=== PATIENT | female | born 1950 | race Caucasian/White ===

== ENCOUNTER 2019-03-18 16:38 | Outpatient (RCR) | payer MEDICARE, MEDICAID, SELFPAY | END 2019-03-31 00:01 | LOC: SPT 16:38 | PROVIDERS: Family Provider Family Medicine; Visit Provider Family Medicine | DX: M25.569 Pain in unspecified knee (principal); M19.90 Unspecified osteoarthritis, unspecified site; M25.519 Pain in unspecified shoulder | CPT/HCPCS: 97162 ==

== ENCOUNTER 2019-04-01 06:00 | Outpatient (RCR) | payer MEDICARE, MEDICAID, SELFPAY | END 2019-05-01 23:59 | disposition home or self-care (01) | LOC: SPT 06:00 | PROVIDERS: Family Provider Family Medicine; Visit Provider Internal Medicine | DX: M19.90 Unspecified osteoarthritis, unspecified site (principal); M25.519 Pain in unspecified shoulder; M25.569 Pain in unspecified knee | CPT/HCPCS: 97110 ==

== ENCOUNTER 2019-05-02 06:00 | Outpatient (RCR) | payer MEDICARE, MEDICAID, SELFPAY | END 2019-05-30 23:59 | disposition home or self-care (01) | LOC: SPT 06:00 | PROVIDERS: Family Provider Family Medicine; Visit Provider Internal Medicine | DX: M25.512 Pain in left shoulder (principal); G80.9 Cerebral palsy, unspecified | CPT/HCPCS: 97110; 97530 ==

== ENCOUNTER 2019-06-02 | Outpatient (RCR) | payer MEDICARE, MEDICAID, SELFPAY | END 2019-06-20 | disposition home or self-care (01) | LOC: SPT | PROVIDERS: Family Provider Family Medicine; Visit Provider Internal Medicine | DX: M19.90 Unspecified osteoarthritis, unspecified site (principal); M25.511 Pain in right shoulder; M25.562 Pain in left knee; M25.561 Pain in right knee | CPT/HCPCS: 97110; 97530 ==

== ENCOUNTER 2019-10-09 11:17 | Outpatient (CLI) | payer MEDICARE, MEDICAID, SELFPAY ==
--- NOTE | 2019-10-09 11:25 | XRR_ITS ---
PROCEDURE INFORMATION: Exam: XR Lumbosacral Spine, 2 or 3 Views Exam date and time: 10/09/2019 11:48 AM Age: 69 years old Clinical indication: Low back pain TECHNIQUE: Imaging protocol: XR of the lumbosacral spine, 2 or 3 views. COMPARISON: CR Lumbar Spine 2-3 views* [id number] 11/22/2015 7:15 AM FINDINGS: Vertebrae: Osteopenia, degenerative change, and mild scoliosis. Gastrointestinal tract: Prominent stool. Soft tissues: Unremarkable. XR/XR lumbar spine 2-3V* [id number] IMPRESSION: Osteopenia, degenerative change, and mild scoliosis.
== END 2019-10-09 11:18 | disposition home or self-care (01) ==
LOC: RAD 11:23
PROVIDERS: Family Provider Family Medicine; Visit Provider Family Medicine
DX: M54.5 Low back pain (principal); M85.88 Other specified disorders of bone density and structure, other site; M41.86 Other forms of scoliosis, lumbar region
CPT/HCPCS: 72100

== ENCOUNTER 2019-11-11 11:58 | Outpatient (CLI) | payer MEDICARE, MEDICAID, SELFPAY ==
--- NOTE | 2019-11-11 12:03 | MM_ITS ---
WS: [id number] BILATERAL DIGITAL SCREENING MAMMOGRAPHY WITH CAD CLINICAL INFORMATION: SCREENING HISTORY: Screening mammogram. No current complaints. COMPARISON: TECHNIQUE: Bilateral CC and MLO views. FINDINGS: The breasts are composed of heterogeneous fibroglandular density tissue, which can limit the detectio n of small underlying mass lesions. No suspicious mass, asymmetry, calcifications, or architectural d istortion. No evidence of malignancy. Dystrophic calcifications right breast. MM/[place] [id number] IMPRESSION: BI-RADS: 2-Benign FOLLOW UP: 1 Year Follow-up Recommend return to annual screening mammography.
== END 2019-11-11 11:59 | disposition home or self-care (01) ==
LOC: RADSHAW 12:02
PROVIDERS: PCP Family Medicine; Visit Provider Family Medicine
DX: Z12.31 Encounter for screening mammogram for malignant neoplasm of breast (principal)
CPT/HCPCS: 77067

== ENCOUNTER 2020-02-23 10:14 | Outpatient (CLI) | payer MEDICARE, MEDICAID, SELFPAY ==
--- NOTE | 2020-02-23 10:34 | CT_ITS ---
WS: [id number] CT HEAD TECHNIQUE: Noncontrast CT of the head obtained from the skullbase to the vertex. CLINICAL INFORMATION: UNSPECIFIED DEMENTIA WITHOUT BEHAVIORAL DISTURBANCE COMPARISON: November 22, 2015 DLP: 992.[address] scans at [facility] use at least one of these dose optimization techniques: automat ed exposure control; mA and/or kV adjustment per patient size (includes targeted exams where dose is matched to clinical indication); or iterative reconstruction. FINDINGS: No evidence of intracranial hemorrhage or mass effect. Ventricular system and basal cisterns are montaño nt. Mild small vessel changes with moderate parenchymal volume loss. No extra-axial fluid collections . No evidence of mass or mass effect. Normal martínez-white differentiation. Paranasal sinuses and mastoid air cells are well aerated. .Normal visualized soft tissues. CT/CT head wo con* [id number] IMPRESSION: 1. No evidence of intracranial hemorrhage or mass effect. 2. Mild small vessel changes. Moderate parenchymal volume loss. 3. No acute intracranial findings.
== END 2020-02-23 10:15 | disposition home or self-care (01) ==
PROVIDERS: PCP Family Medicine; Visit Provider Family Medicine
DX: F03.90 Unspecified dementia, unspecified severity, without behavioral disturbance, psychotic disturbance, mood disturbance, and anxiety (principal)
CPT/HCPCS: 70450

== ENCOUNTER → 2020-06-16 12:52 | Outpatient (BNVA) | payer MEDICARE, MEDICAID, SELFPAY | PROVIDERS: PCP Family Medicine; Visit Provider Surgery | DX: Z01.812 Encounter for preprocedural laboratory examination (principal); Z11.52 Encounter for screening for COVID-19 | CPT/HCPCS: 87635 ==

== ENCOUNTER 2020-06-21 07:36 | Day surgery (SDC) | payer MEDICARE, MEDICAID, SELFPAY ==
[2020-06-20 12:25] VITALS: BMI 20.5
[2020-06-21 08:07] VITALS: BP 160/79; PULSE 91; RESP 18; TEMP 36.9; O2SAT 99
[2020-06-21] MEDS: sodium chloride 0.9% 1,000 ML 30 ML IV (08:10)
--- NOTE | 2020-06-21 08:12 | ANES.PREANE2 ---
Pre-Anesthetic Assessment Pre-Anesthetic Assessment: Height/Weight: Height 1.63 m Weight 54.431 kg Temp Pulse Resp BP Pulse Ox 98.5 F 91 18 160/79 99 06/21/20 08:07 06/21/20 08:07 06/21/20 08:07 06/21/20 08:07 06/21/20 08:07 Preop Diagnosis: diagnostic Proposed Procedure: Operation Date: 06/21/20 08:30 Proposed Procedures p Colonoscopy 89090 K92.1(Not Applicable) - Michele Foster MD Last intake: Intake Last Liquid Date 06/20/20 Last Solid Date 06/19/20 Social: Social History: No alcohol and No tobacco Exam: Pre-Anes Outpt Exam: alert and oriented x 3 Airway: MP: 2 Dentition: Partials Pulmonary: Pulmonary: Sleep apnea Comments: prescribed cpap not in use CV/HEM: CV/HEM: HTN : : None reported Hepatic: Hepatic: None reported GI: GI: GERD Comments: occasional heartburn Metabolic: Metabolic: None reported Musc/skel: Comments: cerebral palsy non ambulatory Neuropsych: Neuropsych: Anxiety and Depression Anesthetic Plan: ASA status: 3 Anesthesia: Anesthesia Evaluation and MAC Risk of > 500 ml blood loss (7ml/kg in children): No PFSH Anesthesia PFSH: Medical History (Updated 06/03/20 @ 17:38 by Michele Foster MD) Anemia Cerebral palsy Dementia Depression Hyperparathyroidism Hypertension Osteoarthritis Surgical History (Updated 06/03/20 @ 11:13 by Michele Foster MD) History of colonoscopy (~2012) History of hysterectomy Social History (Updated 06/03/20 @ 11:07 by Michaela Jain) Smoking and tobacco status: never smoked Alcohol intake: never History of recent travel: No Data Anesthesia Cardiac Studies: No Data to Display
--- NOTE | 2020-06-21 08:45 | W.PM.OPSUD ---
Surgery/Procedure H&P Update DATE OF PROCEDURE: June 21, 2020 DATE H&P PERFORMED: 06/03/20 H&P UPDATE INFORMATION: I have reviewed H&P completed within last 30 days, I have examined patient prior to procedure and No changes to prior documentation PREOP DIAGNOSIS: diagnostic PLANNED PROCEDURE: Operation Date: 06/21/20 08:30 Proposed Procedures p Colonoscopy 67366 K92.1(Not Applicable) - Michele Foster MD
[2020-06-21 09:16] VITALS: BP 108/66; PULSE 78; RESP 18; TEMP 36.1; O2SAT 92
[2020-06-21 09:21] VITALS: BP 127/71; PULSE 77; RESP 20; O2SAT 97
--- NOTE | 2020-06-21 12:04 | ANE.PACU2 ---
Inpatient post-anesthesia follow up: Airway intact: Yes Vital signs: Temperature 97.0 F Pulse Rate 77 Respiratory Rate 20 Blood Pressure 127/71 Pulse Oximetry 97 Oxygen Delivery Me thod Nasal Cannula Oxygen Flow Rate 2 Fraction of Inspir ed Oxygen Hydration adequate: Yes Nausea and vomiting: No Pain level: 2 Mental status: Baseline
== END 2020-06-21 09:50 | disposition home or self-care (01) ==
PROVIDERS: PCP Family Medicine; Visit Provider Surgery
PROC: 0DJD8ZZ Inspection of Lower Intestinal Tract, Via Natural or Artificial Opening Endoscopic (ICD-10-PCS; CPT 45378; principal; 2020-06-21 08:30)
DX: K92.1 Melena (principal); K57.30 Diverticulosis of large intestine without perforation or abscess without bleeding; K64.8 Other hemorrhoids; F32.9 Major depressive disorder, single episode, unspecified; I10 Essential (primary) hypertension; M19.90 Unspecified osteoarthritis, unspecified site; K21.9 Gastro-esophageal reflux disease without esophagitis
CPT/HCPCS: 45378; 96360; J2704; J7030

== ENCOUNTER 2021-10-20 12:04 | Outpatient (CLI) | payer MEDICARE, MEDICAID, SELFPAY ==
--- NOTE | 2021-10-20 | XR_ITS ---
WS: [id number] XR chest 2V* [id number] REASON FOR EXAM: COUGH, UNSPECIFIED FINDINGS: Mild tortuosity the thoracic aorta. Normal heart size. Gas-filled hiatal hernia. Calcified granulomatous disease in both hemithoraces. No lung nodule or lung mass. No acute pulmonary parenchymal or pleural disease. Blunting of the costophrenic angle which appears to be due to pleural scarring based on previous exam inations. Rotatory scoliosis convex right with degenerative spondylosis in the mid and lower thoracic spine. XR/XR chest 2V* [id number] IMPRESSION: No acute chest abnormality.
== END 2021-10-20 12:05 | disposition home or self-care (01) ==
LOC: RAD 12:09
PROVIDERS: PCP Family Medicine; Visit Provider Family Medicine
DX: R05.9 Cough, unspecified (principal)
CPT/HCPCS: 71046

== ENCOUNTER 2021-11-14 06:00 | Outpatient (RCR) | payer MEDICARE, MEDICAID, SELFPAY | END 2021-11-29 23:59 | disposition home or self-care (01) | LOC: SPT 06:00 | PROVIDERS: PCP Family Medicine; Referring Provider Family Medicine; Visit Provider Family Medicine | DX: M25.569 Pain in unspecified knee (principal); M19.90 Unspecified osteoarthritis, unspecified site; M25.519 Pain in unspecified shoulder | CPT/HCPCS: 97110; 97162; 97530 ==

== ENCOUNTER 2021-11-17 08:40 | Outpatient (CLI) | payer MEDICARE, MEDICAID, SELFPAY ==
--- NOTE | 2021-11-17 08:48 | MM_ITS ---
WS: [id number] Bilateral screening digital mammogram, 11/17/2021 Clinical Data: SCREENING Comparison: 11/11/2019, 09/24/2018, 09/04/2017, 06/15/2014, 03/28/2012, 03/12/2012. Findings: The breast parenchymal pattern shows fibroglandular tissue. No spiculated masses or clustered calcifi cations are seen. There are no secondary signs of carcinoma. There are benign calcifications in the u pper outer quadrant of the right breast. There are mole markers on both breasts. MM/[place] [id number] Impression: 1. Negative bilateral mammogram unchanged. 2. Recommend annual screening mammograms. BIRADS: 1-Negative FOLLOW UP: 1 Year Follow-up The CAD truckload checker was used.
== END 2021-11-17 08:41 | disposition home or self-care (01) ==
LOC: RAD 08:42
PROVIDERS: PCP Family Medicine; Visit Provider Family Medicine
DX: Z12.31 Encounter for screening mammogram for malignant neoplasm of breast (principal)
CPT/HCPCS: 77063; 77067

== ENCOUNTER 2021-11-30 06:00 | Outpatient (RCR) | payer MEDICARE, MEDICAID, SELFPAY | END 2021-12-29 23:59 | disposition home or self-care (01) | LOC: SPT 06:00 | PROVIDERS: PCP Family Medicine; Visit Provider Family Medicine | DX: M25.569 Pain in unspecified knee (principal); M19.90 Unspecified osteoarthritis, unspecified site; M25.519 Pain in unspecified shoulder | CPT/HCPCS: 97110; 97530 ==

== ENCOUNTER 2021-12-30 06:00 | Outpatient (RCR) | payer MEDICARE, MEDICAID, SELFPAY | END 2022-01-08 23:55 | disposition home or self-care (01) | LOC: SPT 06:00 | PROVIDERS: PCP Family Medicine; Visit Provider Family Medicine | DX: M19.90 Unspecified osteoarthritis, unspecified site (principal); M25.519 Pain in unspecified shoulder; M25.569 Pain in unspecified knee | CPT/HCPCS: 97110; 97530 ==

== ENCOUNTER 2022-01-16 06:00 | Outpatient (RCR) | payer MEDICARE, MEDICAID, SELFPAY | END 2022-01-29 23:59 | disposition home or self-care (01) | LOC: SOT 06:00 | PROVIDERS: PCP Family Medicine; Visit Provider Family Medicine | DX: G80.1 Spastic diplegic cerebral palsy (principal) | CPT/HCPCS: 97167; 97530 ==

== ENCOUNTER 2022-01-31 06:00 | Outpatient (RCR) | payer MEDICARE, MEDICAID, SELFPAY | END 2022-02-28 23:59 | disposition home or self-care (01) | LOC: SST 06:00 | PROVIDERS: PCP Family Medicine; Visit Provider Family Medicine | DX: G80.9 Cerebral palsy, unspecified (principal); R13.10 Dysphagia, unspecified | CPT/HCPCS: 92526; 92610 ==

== ENCOUNTER 2022-04-13 13:49 | Outpatient (CLI) | payer MEDICARE, MEDICAID, SELFPAY ==
--- NOTE | 2022-04-13 14:05 | XR_ITS ---
WS: [id number] DEXA (DUAL ENERGY X-RAY ABSORPTIOMETRY) Bone mineral density was performed using a [employer] machine. HISTORY: POSTMENOPAUSAL COMPARISON: None available. Lumbar spine BMD (L1-L4): 0.660 g/cm2 T score: -4.3 Z score: -1.9 Total hip BMD: Left: 0.208 g/cm2. T score: -6.4 Z score: -4.3 Right: 0.272 g/cm2. T score: -5.8 Z score: -3.7 10 year probability of a major osteoporotic fracture is 74.8%. XR/XR DEXA axial skeleton* [id number] IMPRESSION: OSTEOPOROSIS based upon the WHO classification for females.
== END 2022-04-13 13:50 | disposition home or self-care (01) ==
PROVIDERS: PCP Family Medicine; Visit Provider Family Medicine
DX: Z78.0 Asymptomatic menopausal state (principal)
CPT/HCPCS: 77080

== ENCOUNTER 2022-04-19 21:22 | Emergency (ER) | payer MEDICARE, MEDICAID, SELFPAY ==
[2022-04-19 21:25] VITALS: BP 184/80; PULSE 65; RESP 18; TEMP 36.8; O2SAT 97; BMI 16.5
--- NOTE | 2022-04-19 21:25 | ED_ITS ---
HPI - General Adult General: Chief complaint: General Medical Stated complaint: HIGH BLOOD PRESSURE Time Seen by Provider: 04/19/22 21:25 Limitations: altered mental status History of Present Illness: Ms Horne is a 71-year-old lady with (per chart review) history of hypertension, dementia, chronic constipation presenting to the emergency department due to concern of high blood pressure, laboratory abnormalities, and eye redness. She has been following with primary care and a bone density scan was ordered, routine labs were ordered due to low bone density and calcium was elevated. Additionally are typically well controlled blood pressure has been higher today. It is unclear if there are any associated symptoms. She also has had eye redness, does have a history of cataract surgery at the end of last year. Unclear if there are any other associated eye symptoms with this. History is limited by patient's mental status. Staff at bedside upon their arrival reports perhaps some mildly worse mental status. Onset (ago): hour(s) Review of Systems General: Reports: ROS unobtainable due to mental status PFSH ED PFSH: Medical History Anemia Cerebral palsy Dementia Depression Hyperparathyroidism Hypertension Osteoarthritis Surgical History History of colonoscopy (06/21/20) Diverticulosis Internal hemorrhoids History of hysterectomy Social History Smoking and tobacco status: never smoked Alcohol intake: never History of recent travel: No Physical Exam Const: COMMON NORMALS: alert GENERAL APPEARANCE: cooperative and well developed HENMT: COMMON NORMALS: normocephalic and atraumatic HEAD & SCALP: normocephalic and atraumatic THROAT: posterior oropharynx normal Eye: SCLERA: sclerae normal OTHER: Right eye conjunctival injection with mild chemosis. There is minimal haziness of the cornea on the right. Intraocular pressure 7 bilaterally. Normal extraocular movements without evidence of entrapment. No evidence of orbital or preseptal cellulitis. Fluorescein without evidence of abrasion Neck/C-Spine: COMMON NORMALS: supple GENERAL: Yes trachea midline Resp: COMMON NORMALS: normal respiratory effort EFFORT & INSPECTION: Yes able to speak in complete sentences Cardio: COMMON NORMALS: regular rate and regular rhythm RATE: regular rate RHYTHM: regular rhythm GI: COMMON NORMALS: Soft to palpation PALPATION: Yes Soft to palpation and No Tenderness to palpation present (GI) Extremity: GENERAL: Yes normal exam except as noted and No edema Neuro: COMMON NORMALS: moves all extremities SENSORIUM/ORIENTATION: Yes alert and Yes Orientation impaired Psych: COMMON NORMALS: mental status grossly normal and Normal thought process present THOUGHT PROCESS: Normal thought process present Course Vital Signs: Vital signs: Vital Signs Temperature 98.2 F 04/19/22 21:25 Pulse Rate 66 04/19/22 22:45 Respiratory Rate 14 04/19/22 22:45 Blood Pressure 145/77 04/19/22 22:45 Pulse Oximetry 96 04/19/22 22:45 [facility] - General Adult Medical Decision Making 71-year-old lady with history of eye surgery presenting to the emergency department for eye complaint and questionable abnormal labs. History is limited by patient's mental status however no focal neurologic deficits are appreciated. Patient is nontoxic and exam as above. Ocular exam performed as noted above. Labs with minimal leukocytosis without significant other hematologic abnormality, similar to prior. Metabolic panel also similar to prior without significant derangement, calcium is only minimally elevated and not significantly such to create mental status change. Patient treated with fluids and temporary eyedrops as we do not carry the recommended eyedrops on formulary as recommended in discussion with ophthalmology. Patient to have close ophthalmology follow-up Most likely etiology of patient's symptoms is hypertension and conjunctivitis. Pretension improved without treatment. The results of ED evaluation were discussed with the staff including prescriptions and/or symptomatic cares (if applicable) including appropriate and responsible use, followup plan, and return precautions. The staff verbalized understanding and felt safe for discharge. Medical Records I reviewed the patient's medical records. Lab Data I reviewed the patient's lab results. 04/19/22 21:40 04/19/22 21:40 Radiology Impressions Chest X-Ray 04/19/22 21:41 IMPRESSION: 1. Left hemidiaphragm is obscured possibly secondary to combined small left pleural effusion and superimposed atelectasis versus infiltrates and pneumonia. 2. Hiatal hernia again seen. Laboratory Results WBC 11.0 10^3/uL (4.0-10.0) H 04/19/22 21:40 RBC 4.27 10^6/uL (4.1-5.3) 04/19/22 21:40 Hgb 13.2 g/dL (11.5-15.3) 04/19/22 21:40 Hct 42.0 % (37.0-47.0) 04/19/22 21:40 MCV 98.4 fl (81-99) 04/19/22 21:40 MCH 30.9 pg (28.0-34.0) 04/19/22 21:40 MCHC 31.4 g/dL (30.0-36.0) 04/19/22 21:40 RDW 14.0 % (12.1-15.1) 04/19/22 21:40 Plt Count 305 10^3/cmm (130-400) 04/19/22 21:40 MPV 9.5 fL (7.4-10.4) 04/19/22 21:40 Neut % (Auto) 63.4 % 04/19/22 21:40 Lymph % (Auto) 25.7 % 04/19/22 21:40 [place] % (Auto) 7.4 % 04/19/22 21:40 Eos % (Auto) 2.8 % 04/19/22 21:40 Baso % (Auto) 0.4 % 04/19/22 21:40 Neut # (Auto) 7.00 10^3/uL (1.8-7.7) 04/19/22 21:40 Lymph # (Auto) 2.8 10^3/uL (0.8-4.8) 04/19/22 21:40 [place]ee # (Auto) 0.8 10^3/uL (0.2-0.9) 04/19/22 21:40 Eos # (Auto) 0.3 10^3/uL (0.0-0.8) 04/19/22 21:40 Baso # (Auto) 0.0 10^3/uL (0.0-0.1) 04/19/22 21:40 Nucleated RBC % (auto) 0 % 04/19/22:40 Nucleated RBCs # 0.0 /100WBC 04/19/22 21:40 Sodium 139 mmol/L (136-145) 04/19/22 21:40 Potassium 4.3 mmol/L (3.5-5.1) 04/19/22 21:40 Chloride 103 mmol/L (98-107) 04/19/22 21:40 Carbon Dioxide 26 mmol/L (22-29) 04/19/22 21:40 Anion Gap 14.3 (5-19) 04/19/22 21:40 BUN 8 mg/dL (8-23) 04/19/22 21:40 Creatinine 0.5 mg/dL (0.5-0.9) 04/19/22 21:40 GFR Calculation Not Reportable 04/19/22 21:40 Glucose 101 mg/dL (65-115) 04/19/22 21:40 Calculated Osmolality 286 mOsm/kg (285-295) 04/19/22 21:40 Calcium 10.6 mg/dL (8.5-10.5) H 04/19/22 21:40 Total Bilirubin 0.2 mg/dL (0.15-1.2) 04/19/22 21:40 AST 20 U/L (0-32) 04/19/22 21:40 ALT 11 U/L (0-33) 04/19/22 21:40 Alkaline Phosphatase 87 U/L (35-105) 04/19/22 21:40 Total Protein 7.4 g/dL (6.6-8.7) 04/19/22 21:40 Albumin 4.1 g/dL (3.5-5.2) 04/19/22 21:40 Globulin 3.3 g/dL (1.3-4.6) 04/19/22 21:40 TSH 4.66 uIU/mL (0.27-4.20) H 04/19/22 21:40 Free T4 1.02 ng/dL (0.82-1.77) 04/19/22 22:34 Discharge Plan Discharge Patient Disposition: Home Clinical Impression: HTN (hypertension), Conjunctivitis Condition: Stable Prescriptions: New moxifloxacin 0.5 % drops See Rx Instructions .ROUTE .COMPLEX Qty: 3 0RF Rx Instructions: 2 drops every 2 hours for 2 days THEN q6hrs for 5 days No Action acetaminophen [Tylenol] 325 mg tablet 650 mg PO QID PRN (Reason: Pain) donepezil [Aricept] 10 mg tablet 10 mg PO DAILY baclofen 5 mg tablet 5 mg PO TID PRN (Reason: Spasms) ferrous sulfate 325 mg (65 mg iron) tablet 325 mg PO DAILY loperamide [Imodium A-D] 2 mg capsule 2 mg PO Q6H PRN (Reason: Abdominal Discomfort) metoprolol succinate 25 mg tablet extended release 24 hr 25 mg PO DAILY polyethylene glycol 3350 [Miralax] 17 gram powder in packet 17 g PO DAILY DHA 200 mg capsule 200 mg PO DAILY fluticasone propionate [Children's Flonase Allergy Rlf] 50 mcg/actuation spray,suspension 1 spray intranasal BID PRN (Reason: allergy symptoms) Qty: 16 0RF Rx Instructions: administer into each nostril Discharge Orders: Discharge ED (Routine); Ordered 04/19/22 Ordered By: Shreyas Holley Referrals: Em Davis MD [Staff Physician] - Patient Instructions: Hypertension (ED), Conjunctivitis (ED) Activity Restrictions/Additional Instructions: Thank you for visiting the emergency department. You were seen and evaluated for high blood pressure and eye concern. As discussed the most likely cause of the eye redness is infection. I will prescribe antibiotics. You may use the ofloxacin drops 2 drops in the right eye every 6 hours until you can fill the moxifloxacin drops and then switch to the moxifloxacin drops as as directed. Please also follow-up with [facility] in the morning. I recommend primary care follow-up for evaluation of blood pressure. You may continue your other medications. Return to the emergency department for uncontrolled symptoms or anything else that you are concerned about a feel needs emergency department evaluation. Coding Level of Care Code ED [employer] Missileman for Nika Marsh
--- NOTE | 2022-04-19 21:41 | XRR_ITS ---
PROCEDURE INFORMATION: Exam: XR Chest Exam date and time: 04/19/2022 9:47 PM Age: 71 years old Clinical indication: Patient HX: Brought via EMS for hypertension. Denies any other complaints. ; Additional info: Hypertension, AMS TECHNIQUE: Imaging protocol: Radiologic exam of the chest. Views: 1 view. COMPARISON: CR XR chest 2V* [id number] 04/17/2022 12:06 PM FINDINGS: Lungs: See Pleural spaces finding. Pleural spaces: The left hemidiaphragm is obscured likely secondary to possible combined left pleural effusion and left basilar atelectasis versus infiltrates and pneumonia. Heart/Mediastinum: A gas-filled hiatal hernia is again seen. Bones/joints: S-shaped curvature of the axial skeleton again seen. XR/XR chest 1V portable [id number] IMPRESSION: 1. Left hemidiaphragm is obscured possibly secondary to combined small left pleural effusion and superimposed atelectasis versus infiltrates and pneumonia. 2. Hiatal hernia again seen.
[2022-04-19 21:46] LABS: Basophils % 0.4 %; Eosinophils # 0.3 10^3/uL (0.0-0.8); Eosinophils % 2.8 %; Hemoglobin 13.2 g/dL (11.5-15.3); Lymphocytes # 2.8 10^3/uL (0.8-4.8); Lymphocytes % 25.7 %; Mean Corpuscular HGB Conc 31.4 g/dL (30.0-36.0); Mean Corpuscular Hemoglobin 30.9 pg (28.0-34.0); Mean Corpuscular Volume 98.4 fl (81-99); Mean Platelet Volume 9.5 fL (7.4-10.4); Monocytes # 0.8 10^3/uL (0.2-0.9); Monocytes % 7.4 %; Neutrophils % 63.4 %; Nucleated Red Blood Cells % 0 %; Platelet Count 305 10^3/cmm (130-400); Red Blood Count 4.27 10^6/uL (4.1-5.3)
--- NOTE | 2022-04-19 21:54 | ECG_ITS ---
[facility] Test Date: 2022-04-19 Pat Name: Melany Horne Department: Room: Gender: Female Registered Pharmacy Technician: : [id number] Requested By: Shreyas Holley Order Number: [id number] Cande MD: Sammy Casper M.D. Measurements Intervals [place] Rate: 58 P: 29 AL: 139 QRS: 40 QRSD: 94 T: 40 QT: 434 QTc: 428 Interpretive Statements SINUS BRADYCARDIA POSSIBLE RIGHT VENTRICULAR CONDUCTION DELAY [RSR (QR) IN V1/V2] Compared to ECG 04/07/2018 14:09:38 Sinus rhythm no longer present T-wave abnormality no longer present Electronically Signed On 04-20-2022 14:43:09 EYE DROPPER ASSEMBLER by Sammy Casper M.D. [id number]
[2022-04-19 22:15] VITALS: BP 151/84; PULSE 63; RESP 14; O2SAT 95
[2022-04-19 22:15] LABS: Alanine Aminotransferase 11 U/L (0-33); Albumin Level 4.1 g/dL (3.5-5.2); Alkaline Phosphatase 87 U/L (35-105); Aspartate Amino Transferase 20 U/L (0-32); Blood Urea Nitrogen 8 mg/dL (8-23); Calcium 10.6 mg/dL (8.5-10.5); Carbon Dioxide 26 mmol/L (22-29); Chloride 103 mmol/L (98-107); Creatinine Clr Calc Pharmacy 43.6962; Globulin 3.3 g/dL (1.3-4.6); Glucose 101 mg/dL (65-115); Osmolality Calculated 286 mOsm/kg (285-295); Sodium 139 mmol/L (136-145); Thyroid Stimulating Hormone 4.66 uIU/mL (0.27-4.20); Total Bilirubin 0.2 mg/dL (0.15-1.2); Total Protein 7.4 g/dL (6.6-8.7)
[2022-04-19 22:16] LABS: Anion Gap 14.3 (5-19); Potassium 4.3 mmol/L (3.5-5.1)
[2022-04-19] MEDS: tetracaine 0.5% Op Soln 4 mL Btl 1 DROP EYE-RIGHT (22:29)
[2022-04-19] MEDS: fluorescein 1 mg Strip EYE-RIGHT (22:29)
[2022-04-19] MEDS: sodium chloride 0.9% 500 ML 999 ML IV (22:40)
[2022-04-19 22:45] VITALS: BP 145/77; PULSE 66; RESP 14; O2SAT 96
[2022-04-19 23:12] LABS: Free T4 Free Thyroxine 1.02 ng/dL (0.82-1.77)
[2022-04-19] MEDS: ofloxacin 0.3% Op Soln 5 mL Btl 2 DROP EYE-RIGHT (23:12)
== END 2022-04-20 00:10 | disposition home or self-care (01) ==
PROVIDERS: Emergency Provider Emergency Medicine; PCP Family Medicine
DX: I10 Essential (primary) hypertension (principal); H10.9 Unspecified conjunctivitis; G80.9 Cerebral palsy, unspecified; F03.90 Unspecified dementia, unspecified severity, without behavioral disturbance, psychotic disturbance, mood disturbance, and anxiety
CPT/HCPCS: 71045; 80053; 84439; 84443; 85025; 93005; 96360; 99285; J7040

== ENCOUNTER 2022-05-08 10:42 | Inpatient (IN) | payer MEDICARE, MEDICAID, SELFPAY ==
[2022-05-08] VITALS (17 sets, daily range): BP systolic 105–138; BP diastolic 63–81; PULSE 78–111; RESP 16–25; TEMP 37.6–38; O2SAT 90–100
--- NOTE | 2022-05-08 10:43 | XRR_ITS ---
PROCEDURE INFORMATION: Exam: XR Chest Exam date and time: 05/08/2022 10:54 AM Age: 71 years old Clinical indication: Cough and dyspnea; Additional info: Dyspnea/cough TECHNIQUE: Imaging protocol: Radiologic exam of the chest. Views: 1 view. COMPARISON: CR (CHEST, ) 04/19/2022 9:47 PM FINDINGS: Lungs: There is minimal opacity in the left lung base suggesting subsegmental atelectasis. The right lung is clear. Pleural spaces: There is no pleural effusion or pneumothorax. Heart/Mediastinum: Cardiomediastinal contours are unremarkable. Small hiatal hernia noted. Bones/joints: Bones are unremarkable. XR/XR chest 1V portable [id number] IMPRESSION: 1. No acute findings. 2. Hiatal hernia.
--- NOTE | 2022-05-08 11:02 | ED_ITS ---
HPI - SOB/Dyspnea General: Chief Complaint: Shortness of Breath/Dyspnea Stated Complaint: sob Time Seen by Provider: 05/08/22 10:43 History of Present Illness: HPI Narrative: Ms. Horne is a 71-year-old lady with significant past medical history of hypertension, cerebral palsy presenting to the emergency department for shortness of breath and respiratory symptoms. She reports a few week history of worsening symptoms that have become significantly worse over the past few days. She endorses fevers, generalized malaise, productive cough, shortness of breath. Intensity of symptoms as moderate. Course has worsened. Patient requiring supplemental oxygen which is not her baseline. The results of ED evaluation were discussed with the patient including prescriptions and/or symptomatic cares (if applicable) including appropriate and responsible use, followup plan, and return precautions. The patient verbalized understanding and felt safe for discharge. Onset (ago): week(s) Timing: progressively worsening Exacerbating factors: exertion Relieving factors: nothing Associated symptoms: Reports cough, fever(s), nausea and other Review of Systems General: Reports: 10 or more systems reviewed and unremarkable except in HPI and below Const: Reports: fever(s) GI: Reports: nausea PFSH ED PFSH: Medical History (Updated 05/19/22 @ 00:09 by BRITTANY Alcala) Anemia Cerebral palsy Dementia Depression Encounter for feeding tube placement Hyperparathyroidism Hypertension Osteoarthritis Osteoporosis Surgical History History of colonoscopy (06/21/20) Diverticulosis Internal hemorrhoids History of hysterectomy Social History Smoking and tobacco status: never smoked Alcohol intake: never History of recent travel: No Physical Exam Const: COMMON NORMALS: alert GENERAL APPEARANCE: cooperative, well developed and ill appearing HENMT: COMMON NORMALS: normocephalic and atraumatic HEAD & SCALP: normocephalic and atraumatic Eye: COMMON NORMALS: conjunctivae normal CONJUNCTIVA: Yes conjunctivae normal SCLERA: sclerae normal Neck/C-Spine: COMMON NORMALS: supple GENERAL: Yes trachea midline Resp: EFFORT & INSPECTION: Yes able to speak in complete sentences and Yes tachypneic AUSCULTATION: rhonchi Cardio: COMMON NORMALS: regular rhythm RATE: tachycardic RHYTHM: regular rhythm GI: COMMON NORMALS: Soft to palpation PALPATION: Yes Soft to palpation and No Tenderness to palpation present (GI) Extremity: GENERAL: Yes normal exam except as noted and No edema Neuro: COMMON NORMALS: moves all extremities SENSORIUM/ORIENTATION: Yes alert and No Orientation impaired Psych: COMMON NORMALS: mental status grossly normal and Normal thought process present THOUGHT PROCESS: Normal thought process present Course Vital Signs: Vital signs: Vital Signs Temperature 98.5 F 05/18/22 16:02 Pulse Rate 103 H 05/18/22 16:02 Respiratory Rate 10 L 05/18/22 16:02 Blood Pressure 157/73 05/18/22 16:02 Pulse Oximetry 98 05/18/22 16:02 Oxygen Delivery Me thod 05/18/22 12:00 Oxygen Flow Rate 2 05/18/22 12:00 Fraction of Inspir ed Oxygen 4 05/13/22 14:05 MDM - SOB/Dyspnea Medical Decision Making 71-year-old lady with cerebral palsy presenting to the emergency department for shortness of breath. Patient is somewhat ill-appearing with rhonchi and is high risk for aspiration pneumonia. EKG notable for sinus rhythm, tachycardia, normal axis and intervals, non specific ST segment abnormalities, no STEMI. Similar on repeat. Labs notable for mild leukocytosis and normal hemoglobin. Metabolic panel without acute derangement. Negative range 2-hour delta troponin. Urinalysis concerning for urinary tract infection.. PCR viral panel pending. Chest x-ray with no lobar consolidation or pneumothorax. CTA is limited interpretation, no main pulmonary embolism. There are infiltrates present. Patient treated with DuoNeb, IV fluids, broad-spectrum antibiotics. Given overall health and clinical exam patient requires inpatient management of pneumonia and urinary tract infection. The results of ED evaluation were discussed with the patient including plan for admission due to requirement for level of care not available if discharged to prevent significant worsening/deterioration. Patient agreeable with plan. Discussed with hospitalist service who was agreeable to admit patient. Medical Records I reviewed the patient's medical records. Lab Data I reviewed the patient's lab results. 05/08/22 10:12 05/08/22 10:12 Labs/Radiology: Radiology Impressions Chest CTA 05/08/22 12:07 IMPRESSION: 1. Proximal main pulmonary arteries are normal. No evidence of pulmonary embolus. 2. Hazy bilateral perihilar infiltrates suspicious for pneumonitis. Recommend correlation for viral pneumonia including Covid 19 pneumonia. 3. Large esophageal hiatal hernia with partial intrathoracic stomach. Associated LEFT lower lobe atelectasis and small LEFT pleural effusion with volume loss. 4. Partially visualized air-filled diverticulum visualized in the lower neck eccentric to the RIGHT described above. This can be followed up with contrast- enhanced neck CT for better anatomic detail. Recommend correlation with dys phagia. Notified Shreyas Holley MD at 05/08/2022 3:[address] 05/10/22 00:00 IMPRESSION: 1. Large posteriorly projecting lower cervical esophageal diverticulum measuring 4.4 cm. This contains retained contrast material and presumably also food. Retained contrast is also seen in the thoracic esophagus which may reflect GERD. 2. Small left pleural effusion. Infiltrates in the xaoj-wbevpzh-[id number]-right lungs, suspicious for pneumonia or aspiration given history. 3. Otherwise unremarkable aerodigestive tract. Modified Barium Swallow 05/10/22 09:00 IMPRESSION: Modified barium swallow as above. Chest X-Ray 05/16/22 08:00 IMPRESSION: Imaging findings of pulmonary edema with small left pleural effusion. Pneumonia should be excluded clinically. Laboratory Results WBC 10.4 10^3/uL (4.0-10.0) H 05/08/22 10:12 RBC 4.07 10^6/uL (4.1-5.3) L 05/08/22 10:12 Hgb 12.4 g/dL (11.5-15.3) 05/08/22 10:12 Hct 39.6 % (37.0-47.0) 05/08/22 10:12 MCV 97.3 fl (81-99) 05/08/22 10:12 MCH 30.5 pg (28.0-34.0) 05/08/22 10:12 MCHC 31.3 g/dL (30.0-36.0) 05/08/22 10:12 RDW 14.1 % (12.1-15.1) 05/08/22 10:12 Plt Count 250 10^3/cmm (130-400) 05/08/22 10:12 MPV 10.0 fL (7.4-10.4) 05/08/22 10:12 Neut % (Auto) 80.5 % 05/08/22 10:12 Lymph % (Auto) 9.5 % 05/08/22 10:12 [place] % (Auto) 8.8 % 05/08/22 10:12 Eos % (Auto) 0.7 % 05/08/22 10:12 Baso % (Auto) 0.3 % 05/08/22 10:12 Neut # (Auto) 8.35 10^3/uL (1.8-7.7) H 05/08/22 10:12 Lymph # (Auto) 1.0 10^3/uL (0.8-4.8) 05/08/22 10:12 [place] # (Auto) 0.9 10^3/uL (0.2-0.9) 05/08/22 10:12 Eos # (Auto) 0.1 10^3/uL (0.0-0.8) 05/08/22 10:12 Baso # (Auto) 0.0 10^3/uL (0.0-0.1) 05/08/22 10:12 Nucleated RBC % (auto) 0 % 05/08/22 10:12 Nucleated RBCs # 0.0 /100WBC 05/08/22 10:12 D-Dimer 3.25 ug/mIFEU (0-0.59) H 05/08/22 11:13 Sodium 139 mmol/L (136-145) 05/08/22 10:12 Potassium 3.7 mmol/L (3.5-5.1) 05/08/22 10:12 Chloride 102 mmol/L (98-107) 05/08/22 10:12 Carbon Dioxide 25 mmol/L (22-29) 05/08/22 10:12 Anion Gap 15.7 (5-19) 05/08/22 10:12 BUN 11 mg/dL (8-23) 05/08/22 10:12 Creatinine 0.5 mg/dL (0.5-0.9) 05/08/22 10:12 GFR Calculation Not Reportable 05/08/22 10:12 Glucose 102 mg/dL (65-115) 05/08/22 10:12 Calculated Osmolality 288 mOsm/kg (285-295) 05/08/22 10:12 Lactic Acid 1.6 mmol/L (0.5-2.2) 05/08/22 11:13 Calcium 9.9 mg/dL (8.5-10.5) 05/08/22 10:12 Troponin T Baseline 24 ng/L (0-10) H 05/08/22 11:13 Troponin T 120 Minute 21.48 ng/L (0-10) H 05/08/22 13:30 Delta Troponin T -2.52 ABS# (0-10) L 05/08/22 13:30 C-Reactive Protein 96.3 mg/L (0.0-4.9) H 05/08/22 11:13 NT-Pro-B Natriuret Pep 359 pg/mL (0-125) H 05/08/22 11:13 Procalcitonin 0.11 ng/mL (0-0.5) 05/08/22 11:13 Urine Color Yellow (Yellow) 05/08/22 13:20 Urine Appearance Sl hazy (CLEAR) A 05/08/22 13:20 Urine pH 5 (5-7) 05/08/22 13:20 Ur Specific [place] 1.025 (1.005-1.030) 05/08/22 13:20 Urine Protein Neg (Negative) 05/08/22 13:20 Urine Glucose (UA) Norm (Normal) 05/08/22 13:20 Urine Ketones 3+ (Negative) H 05/08/22 13:20 Urine Blood 2+ (Negative) H 05/08/22 13:20 Urine Nitrate Positive (Negative) H 05/08/22 13:20 Urine Bilirubin Neg (Negative) 05/08/22 13:20 Urine Urobilinogen Norm mg/dL (Negative) 05/08/22 13:20 Ur Leukocyte Esterase Negative (Negative) 05/08/22 13:20 Urine RBC 0-4 /hpf (0-2) H 05/08/22 13:20 Urine WBC 5-10 /hpf (0-5) H 05/08/22 13:20 Ur Squamous Epith Cells 0-4 /hpf (0-5) H 05/08/22 13:20 Amorphous Sediment Not Reportable 05/08/22 13:20 Urine Bacteria 3+ /hpf (NONE) H 05/08/22 13:20 Urine Mucus 1+ /hpf 05/08/22 13:20 Coronavirus 229E (PCR) Detected (NOT DETECT) A 05/08/22 11:40 SARS-CoV-2 (PCR) Not detected (NOT DETECT) 05/08/22 11:40 Discharge Plan Discharge Patient Disposition: Admitted As Inpatient Admit Provider: Bunny Kuhn Clinical Impression: Viral pneumonia, SIRS (systemic inflammatory response syndrome), Acute UTI, Acute respiratory failure with hypoxia Condition: Stable Discharge Diet: Start new tube feeds as directed Discharge Activity: Increase activity as tolerated and Wheelchair as instructed Coding Level of Care Code ED Salvage Engineering Technician for Nika Marsh
[2022-05-08 11:05] LABS: Basophils % 0.3 %; Eosinophils # 0.1 10^3/uL (0.0-0.8); Eosinophils % 0.7 %; Hematocrit 39.6 % (37.0-47.0); Hemoglobin 12.4 g/dL (11.5-15.3); Lymphocytes % 9.5 %; Mean Corpuscular HGB Conc 31.3 g/dL (30.0-36.0); Mean Corpuscular Hemoglobin 30.5 pg (28.0-34.0); Mean Corpuscular Volume 97.3 fl (81-99); Monocytes # 0.9 10^3/uL (0.2-0.9); Monocytes % 8.8 %; Neutrophils # 8.35 10^3/uL (1.8-7.7); Neutrophils % 80.5 %; Nucleated Red Blood Cells % 0 %; Platelet Count 250 10^3/cmm (130-400); Red Blood Count 4.07 10^6/uL (4.1-5.3); Red Cell Distribution Width 14.1 % (12.1-15.1); White Blood Count 10.4 10^3/uL (4.0-10.0)
--- NOTE | 2022-05-08 11:08 | ECG_ITS ---
[facility] Test Date: 2022-05-08 Pat Name: Melany Horne Department: Room: Gender: Female Vacuum Bottle Assembler: : 1950 Requested By: Shreyas Holley Order Number: [id number] Cande MD: Sammy Casper M.D. Measurements Intervals [place] Rate: 109 P: 46 GA: 150 QRS: 50 QRSD: 98 T: -10 QT: 250 QTc: 337 Interpretive Statements SINUS TACHYCARDIA POSSIBLE RIGHT VENTRICULAR CONDUCTION DELAY [RSR (QR) IN V1/V2] NONSPECIFIC ST & T-WAVE ABNORMALITY Compared to ECG 04/19/2022 21:54:58 T-wave abnormality now present Sinus bradycardia no longer present Electronically Signed On 05-08-2022 18:09:09 INDUSTRIAL EQUIPMENT MECHANIC by Sammy Casper M.D. [email or web address].[email or web address]/store/[id number]
[2022-05-08 11:21] LABS: Anion Gap 15.7 (5-19); Blood Urea Nitrogen 11 mg/dL (8-23); Calcium 9.9 mg/dL (8.5-10.5); Carbon Dioxide 25 mmol/L (22-29); Chloride 102 mmol/L (98-107); Glucose 102 mg/dL (65-115); Osmolality Calculated 288 mOsm/kg (285-295); Potassium 3.7 mmol/L (3.5-5.1); Sodium 139 mmol/L (136-145)
[2022-05-08] MEDS: sodium chloride 0.9% 1,000 ML 999 ML IV (11:40)
[2022-05-08] MEDS: albuterol 2.5 mg/3 mL Neb INHALATION (11:43)
[2022-05-08] MEDS: ipratropium 0.5 mg/2.5 mL Neb INHALATION (11:44)
[2022-05-08] MEDS: piperacillin-tazobactam 3.375 GM in sodium chloride 0.9% (plus) 50 ML IV ×2 (11:53→17:51)
[2022-05-08 12:06] LABS: D Dimer 3.25 ug/mIFEU (0-0.59)
--- NOTE | 2022-05-08 12:06 | PC.PHAR ---
pt is from [facility]-pts caregivers in the pts room states the pt got all am meds
--- NOTE | 2022-05-08 12:07 | CT_ITS ---
WS: [id number] CTA OF THE CHEST WITH PULMONARY EMBOLISM PROTOCOL TECHNIQUE: High-resolution contrast enhanced CTA of the chest with coronal and sagittal reformatted i mages with pulmonary embolism protocol. MIP images are also reviewed. CLINICAL INFORMATION: cough, sob, tachy, new o2, elevated ddimer COMPARISON: None. DLP: 244.[address] scans at [facility] use at least one of these dose optimization techniques: automated e xposure control; mA and/or kV adjustment per patient size (includes targeted exams where dose is matc hed to clinical indication); or iterative reconstruction. FINDINGS: Large esophageal hiatal hernia with partial intrathoracic stomach. This extends into the LEFT lower l obe. Small LEFT pleural effusion with subsegmental atelectasis LEFT lower lobe. Volume loss LEFT lowe r lobe. Air-fluid level in the thoracic hernia. Moderate chronic emphysematous changes. Hazy atelectasis RIGHT middle lobe and RIGHT lower lobe. Hazy bilateral perihilar groundglass infiltrates.Correlation for pneumonitis including viral pneumonitis. Small subpleural nodule RIGHT lower lobe measuring 3.5 mm. Proximal main pulmonary arteries are normal. Normal segmental and subsegmental pulmonary arteries. No mediastinal or hilar lymphadenopathy. Bilateral bronchovascular thickening. Partially visualized hepatic cysts. LEFT adrenal gland is alexis l. RIGHT adrenal gland not visualized. Hypertrophic changes thoracic spine. Prominent air-filled pharyngeal diverticulum measuring 3.4 x 1.8 cm. partially visualized in the lowe r neck eccentric to the RIGHT. CT/CT angio chest PE protcl [id number] IMPRESSION: 1. Proximal main pulmonary arteries are normal. No evidence of pulmonary embol us. 2. Hazy bilateral perihilar infiltrates suspicious for pneumonitis. Recommend correlation for viral pneumonia including Covid 19 pneumonia. 3. Large esophageal hiatal hernia with partial intrathoracic stomach. Associat ed LEFT lower lobe atelectasis and small LEFT pleural effusion with volume loss . 4. Partially visualized air-filled diverticulum visualized in the lower neck e ccentric to the RIGHT described above. This can be followed up with contrast-en hanced neck CT for better anatomic detail. Recommend correlation with dysphagia . Notified Shreyas Holley MD at 05/08/2022 3:03 PM.
[2022-05-08 12:14] LABS: Lactic Sepsis W/Reflex 1.6 mmol/L (0.5-2.2)
[2022-05-08 12:16] LABS: Troponin(5th) Baseline 24 ng/L (0-10)
[2022-05-08 12:26] LABS: NT Pro B Type Natriuretic Pept 359 pg/mL (0-125); Procalcitonin 0.11 ng/mL (0-0.5)
[2022-05-08 12:36] LABS: C Reactive Protein 96.3 mg/L (0.0-4.9)
--- NOTE | 2022-05-08 13:08 | ECG_ITS ---
[facility] Test Date: 2022-05-08 Pat Name: Melany Horne Department: Room: Gender: Female Child Care Group Leader: : 1950 Requested By: Shreyas Holley Order Number: [id number] Cande MD: Sammy Casper M.D. Measurements Intervals [place] Rate: 92 P: 53 MD: 157 QRS: 55 QRSD: 89 T: 25 QT: 363 QTc: 451 Interpretive Statements SINUS RHYTHM Compared to ECG 05/08/2022 11:54:51 Sinus tachycardia no longer present T-wave abnormality no longer present Electronically Signed On 05-08-2022 18:11:07 CHEMIST WATER PURIFICATION by Sammy Casper M.D. [id number]
[2022-05-08 13:41] LABS: Blood Urine 2+ (Negative); Glucose Urine UA Norm (Normal); Ketones Urine 3+ (Negative); Protein Urine Neg (Negative); Specific Gravity, Urine 1.025 (1.005-1.030); Urine Appearance SL Hazy (CLEAR); Urine Color Yellow (Yellow); pH Urine 5 (5-7)
[2022-05-08 13:42] LABS: Add Urine Culture? Yes; Add Urine Microscopic? YES; Bacteria Urine 3+ /hpf; Bilirubin Urine Neg (Negative); Leukocyte Esterase Urine Negative (Negative); Mucus Urine 1+ /hpf; Nitrate Urine Positive (Negative); RBC Urine 0-4 /hpf (0-2); Squamous Epithelial Cell Urine 0-4 /hpf (0-5); Urobilinogen Urine Norm (Negative)
[2022-05-08 13:52] LABS: Adenovirus Not Detected (NOT DETECT); Chlamydia Pneumoniae Not Detected (NOT DETECT); Coronavirus 229E,HKU1,NL63,OC4 Detected (NOT DETECT); Human Metapneumovirus Not Detected (NOT DETECT); Human Rhinovirus/Enterovirus Not Detected (NOT DETECT); Influenza A Not Detected (NOT DETECT); Influenza A H1 Not Detected (NOT DETECT); Influenza A H1-2009 Not Detected (NOT DETECT); Influenza A H3 Not Detected (NOT DETECT); Influenza B Not Detected (NOT DETECT); Mycoplasma Pneumoniae Not Detected (NOT DETECT); Parainfluenza Virus Type 1 Not Detected (NOT DETECT); Parainfluenza Virus Type 2 Not Detected (NOT DETECT); Parainfluenza Virus Type 3 Not Detected (NOT DETECT); Parainfluenza Virus Type 4 Not Detected (NOT DETECT); Respiratory Syncytial Virus A Not Detected (NOT DETECT); Respiratory Syncytial Virus B Not Detected (NOT DETECT); SARS-COV-2 Not Detected (NOT DETECT)
[2022-05-08] MEDS: vancomycin 1,500 MG/300 ML PIGGYBACK 200 MG IV (13:53)
[2022-05-08 14:09] LABS: Troponin 5 2HR 21.48 ng/L (0-10)
[2022-05-08 14:10] LABS: Troponin 5 2HR Delta -2.52 ABS# (0-10)
[2022-05-08] MEDS: iohexol 350 mg/mL 500 mL Btl (per mL) IV (14:33)
--- NOTE | 2022-05-08 16:29 | PC.NURSE ---
Pt report called to Vanda FOWLER.
--- NOTE | 2022-05-08 17:08 | ECG_ITS ---
[facility] Test Date: 2022-05-08 Pat Name: Melany Horne Department: Room: 266 Gender: Female Preparation Center Coordinator: : 1950 Requested By: Shreyas Holley Order Number: [id number] Cande MD: Sammy Casper M.D. Measurements Intervals [place] Rate: 87 P: 0 [place]: 0 QRS: 67 QRSD: 81 T: 32 QT: 358 QTc: 431 Interpretive Statements SUPRAVENTRICULAR RHYTHM MODERATE T-WAVE ABNORMALITY, CONSIDER INFERIOR ISCHEMIA [-0.1+ mV T-WAVE IN II/aVF] Compared to ECG 05/08/2022 14:50:24 Supraventricular rhythm now present T-wave abnormality now present Possible ischemia now present Sinus rhythm no longer present Electronically Signed On 05-08-2022 18:10:32 MEDICAL TECHNOLOGIST PRN by Sammy Casper M.D. [email or web address] [email or web address] Management [email or web address] Security Solutionssal[facility].[email or web address]/store/[id number]
--- NOTE | 2022-05-08 17:13 | P.HP_ITS ---
Providers/Chief Complaint Admitting Physician: Bunny Kuhn MD Primary Care Provider: Abran Rosa MD Chief Complaint: sob History of Present Illness History taken from chart review, discussion with ER physician, sister at bedside. Melany Horne is a 71 year old female who is a resident of a long term with past medical history of cerebral palsy, hypertension presents to the ER today because of difficulty breathing, fever. As per the patient and the sister she has been having difficulty breathing, cough for last 3 to 4 days which has been getting worse. Today she was found to be hypoxic on room air along with fever up to 101 and she was sent to the ER. As per my evaluation with the primary caregiver at the long term patient has been having cough ongoing for the last 1 year since her COVID-19 but gets worse whenever she eats the last couple of months. We did try changing her consistency of diet as per speech therapy few months ago which seemed to help for short while but again started having difficulty in chewing and swallowing associated with cough with each meal within the last 1 month. As per the caregiver last year after COVID patient was severely debilitated for around a month. In the ER patient was found to be hypoxic down to mid 80s requiring 2 L to maintain saturations over 90%. At baseline patient is not on oxygen. On examination patient was seen on MedSur floor on 2 L oxygen supplementation saturating 96% with fever of 100.4 Fahrenheit. Review of Systems General: Reports: ROS unobtainable due to mental status Medications/Allergies Home Medications Medication Instructions Recorded Confirmed Last Taken Type acetaminophen 325 mg tablet 650 mg PO QID PRN Pain 06/03/20 05/08/22 06/20/20 H istory (Tylenol) baclofen 5 mg tablet 5 mg PO TID PRN Muscle Spasm 06/03/20 05/08/22 06/20/20 History donepezil 10 mg tablet (Aricept) 10 mg PO BEDTIME@06/03/20 05/08/22 06/20/20 History ferrous sulfate 325 mg (65 mg 325 mg PO BID 06/03/20 05/08/22 05/08/22 History iron) tablet loperamide 2 mg capsule (Imodium 2 mg PO DAILY PRN Diarrhea 06/03/20 05/08/22 06/20/20 History A-D) acetaminophen 325 mg tablet 650 mg PO DAILY@05/08/22 05/08/22 05/08/22 History (Tylenol) baclofen 5 mg tablet 5 mg PO BEDTIME@05/08/22 05/08/22 Unknown History cholecalciferol (vitamin D3) 25 3,000 unit PO DAILY@05/08/22 05/08/22 05/08/22 History mcg (1,000 unit) capsule (Vitamin D3) citalopram 10 mg tablet 10 mg PO DAILY@05/08/22 05/08/22 05/08/22 History docusate sodium 100 mg capsule 100 mg PO BID PRN Constipation 05/08/22 05/08/22 Unknown History (DOK) fluoride (sodium) 1.1 % dental See Rx Instructions .Route .COMPLEX 05/08/22 05/08/22 Unknown History cream (SF 5000 Plus) fluticasone propionate 50 1 spray intranasal BID PRN allergy 05/08/22 05/08/22 Unknown History mcg/actuation nasal symptoms spray,suspension (Flonase Allergy Relief) loratadine 10 mg tablet 10 mg PO DAILY PRN Allergy Symptoms 05/08/22 05/08/22 Unknown History metoprolol succinate 25 mg 25 mg PO DAILY@05/08/22 05/08/22 05/08/22 History tablet,extended release 24 hr polyethylene glycol 3350 17 8.5 g PO EVERY OTHER DAY 05/08/22 05/08/22 Unknown History gram/dose oral powder (Miralax) vitamin with calcium 1 tab PO DAILY@05/08/22 05/08/22 05/08/22 History no.71-iron 27 mg-folic acid 1 mg tablet (WesTab Plus) quetiapine 25 mg tablet 25 mg PO BEDTIME@05/08/22 05/08/22 Unknown History Allergies Allergy/AdvReac Type Severity Reaction Status Date / Time ibuprofen Allergy Unknown Unknown Verified 05/08/22 11:31 Sulfa (Sulfonamide Allergy Unknown Unknown Verified 05/08/22 11:31 Antibiotics) naproxen Allergy Unknown Verified 05/08/22 11:31 strawberry Allergy Unknown Verified 05/08/22 11:32 dove body wash Allergy Unknown Uncoded 05/08/22 11:32 PFSH Acute PFSH: Medical History (Updated 02/07/23 @ 17:15 by Bunny Kuhn MD) Anemia Cerebral palsy Dementia Depression Hyperparathyroidism Hypertension Osteoarthritis Surgical History History of colonoscopy (06/21/20) Diverticulosis Internal hemorrhoids History of hysterectomy Social History Smoking and tobacco status: never smoked Alcohol intake: never History of recent travel: No Vitals/I&O/Wt Last Vital Signs Temp 100.4 F H 05/08/22 10:48 Pulse 78 05/08/22 16:45 Resp 20 H 05/08/22 16:45 BP 117/67 05/08/22 16:45 Pulse Ox 96 05/08/22 16:45 O2 Del Method 05/08/22 11:44 O2 Flow Rate 2 05/08/22 11:44 05/08/22 05/08/22 05/08/22 06:59 14:59 22:59 Intake Total 50 / 50 1300 / 1350 Balance 50 / 50 1300 / 1350 Physical Exam Narrative: General: No acute distress, AO x2 3, slow to respond, NC oxygen supplementation, appears slightly confused HEENT: PERRLA, pupils bilaterally equal and reactive Chest:Bronchial breath sounds b/l , coarse crackles present all over the lung logan, conducted sounds present CVS: S1-S2 regular, no murmurs, no tachycardia, no gallops, no rubs Abdomen: Soft, nontender, no organomegaly, bowel sounds present, morbidly obese Neuro: No focal deficits, no facial deformity, AO x3, power 5/5 in all limbs Data 05/08/22 10:12 05/08/22 10:12 Other Labs: Radiology Impressions Chest X-Ray 05/08/22 10:43 IMPRESSION: 1. No acute findings. 2. Hiatal hernia. Chest CTA 05/08/22 12:07 IMPRESSION: 1. Proximal main pulmonary arteries are normal. No evidence of pulmonary embolus. 2. Hazy bilateral perihilar infiltrates suspicious for pneumonitis. Recommend correlation for viral pneumonia including Covid 19 pneumonia. 3. Large esophageal hiatal hernia with partial intrathoracic stomach. Associated LEFT lower lobe atelectasis and small LEFT pleural effusion with volume loss. 4. Partially visualized air-filled diverticulum visualized in the lower neck eccentric to the RIGHT described above. This can be followed up with contrast- enhanced neck CT for better anatomic detail. Recommend correlation with dysphagia. Micro: Microbiology 05/08/22 11:29 Blood Culture - Preliminary Blood SPECIMEN COLLECTED 05/08/22 11:13 Blood Culture - Preliminary Blood SPECIMEN COLLECTED A&P Assessment and plan (1) Acute respiratory failure with hypoxia: Insetting of coronavirus not COVID-19, pneumonia with high concerns for aspiration pneumonia. CT done in the ER concerning for hiatal hernia and diverticulum. NPO. MRSA swab, blood culture, sputum culture, urine Legionella, bacterial antigen. For now start patient on vancomycin and Zosyn. We will decongested antibiotics as per culture results. Speech therapy evaluation and modified barium swallow. DuoNebs every 6 hours, budesonide twice daily. Oxygen supplementation keeping saturation over 90%. (2) Pneumonia: (3) Aspiration pneumonia: (4) Coronavirus infection: (5) SIRS (systemic inflammatory response syndrome): (6) Cerebral palsy: (7) Hiatal hernia: Plan Continue other chronic medication including baclofen, citalopram, donepezil, Seroquel. Analgesia: Tylenol as needed Glycemic control: Not needed Nutrition: N.p.o. Speech therapy evaluation. CODE STATUS: Full code PUD prophylaxis: Famotidine DVT prophylaxis: Heparin 5000 every 8 hourly Discharge planning: Home with caregiver once medically stable. Admit to [facility] floor. This documentation was created by [employer] physical sciences professor software. Every effort was made to ensure accuracy of physical sciences professor. Any obvious errors or omissions should be clarified with the author of the document. Attestations Medical Necessity Statement*: Admission for more than 2 midnights for management of hypoxia in setting of aspiration pneumonia and coronavirus infection not COVID-19 in a patient with baseline cerebral palsy Coding Level of Care Code 10136 Moderate MDM includes risk/complexity, reviewing previous or external records, reviewing test results, ordering lab/other test(s), speaking with independent historian (other than patient), independently interpretating test(s) (not separately recorded) and discussion of management or test(s) w/ other healthcare professional and Moderate Time for a total of 50 minutes, includes reviewing past or interval history, examining/interviewing patient, placing orders, counseling patient/family/other support, updating patient/family/other support, discussing plan of care with staff, communicating with other healthcare providers, documenting encounter and coordinating care Diagnoses Acute respiratory failure with hypoxia J96.01 Pneumonia J18.9 Aspiration pneumonia J69.0 Coronavirus infection B34.2 SIRS (systemic inflammatory response syndrome) R65.10 Cerebral palsy G80.9 Hiatal hernia K44.9
[2022-05-08] MEDS: heparin 5,000 unit/mL INJ 1 mL 5000 UNIT SUBCUT (17:51)
[2022-05-08] MEDS: famotidine 20 mg/2 mL INJ IVP (17:51)
[2022-05-08] MEDS: dextrose 5%-sod chloride 0.45% 1,000 ML 75 ML IV (17:58)
[2022-05-08] MEDS: ferrous sulfate EC 325 mg Tablet PO (17:59)
[2022-05-08 18:54] LABS: Troponin 5 6HR 19.83 ng/L (0-10)
[2022-05-08 18:55] LABS: Troponin 5 6HR Delta -4.17 ng/L (0-12)
[2022-05-08 19:13] LABS: Thyroid Stimulating Hormone 0.92 uIU/mL (0.27-4.20); Vitamin B12 492 pg/mL (232-1245)
[2022-05-08 19:31] LABS: Folate Level > 20.0 ng/mL (4.8-37.3)
[2022-05-08 19:57] LABS: Iron 12 ug/dL (37-145); Percent Saturation 6.7 % (20-50); Procalcitonin 0.19 ng/mL (0-0.5); Total Iron Binding Capacity 179 mcg/dl; Unsaturated Iron Binding 167 ug/dL (112-347)
--- NOTE | 2022-05-08 20:41 | PC.PHAR ---
Pharmacokinetic dosing service Date: 05/08/2022 Time: 2040 Objective: Patient: Melany Horne Floor: 266-1 Age: 71 yo Serum creatinine: 0.5 mg/dL Height: 64.0 Inches Weight (kg): 45.631 Diagnosis: Relevant medical/social history: Cultures and sensitivities: Other labs: Assessment: IBW (kg): 54.70 Dosing wt(kg): 45.631 Estimated Creatinine clearance (ml/min): 73.3 CRCL method: Cockcroft and Gault using ibw(default). Drug selected: Vancomycin Loading dose (mg): 0 Vd (liters): 41.1 (factor used: 0.9 L/kg) Roman (hr-1): 0.065 Half life (hrs): 10.66 Recommended dose: 750 mg Interval: 12 hrs Infusion time (hrs): 1.5 Predicted peak (mcg/mL): 32.1 Predicted trough (mcg/mL): 16.22 Total body weight is being used for vancomycin dosing. Renal function is stable [ ] /unstable [ ] Recommendations: Give Vancomycin 750 mg q 12 hrs with an expected Cpeak of 32.1 mcg/ml and an expected Ctrough of 16.22 mcg/ml Renal dosing of other antibiotics (review renal dosing of other medications and list guidelines here): Thank you for the consult, will continue to follow. Signature: Marissa Umana [facility]
[2022-05-08] MEDS: budesonide 0.5 mg/2 mL Neb INHALATION (21:39)
[2022-05-08] MEDS: ipratropium-albuterol 3 mL Neb INHALATION (21:39)
[2022-05-08] MEDS: baclofen 10 mg Tablet 5 MG PO (22:20)
[2022-05-08] MEDS: quetiapine 25 mg Tablet PO (22:23)
[2022-05-08] MEDS: donepezil 5 MG Tablet 10 MG PO (22:23)
[2022-05-09] VITALS (13 sets, daily range): BP systolic 104–129; BP diastolic 66–76; PULSE 77–104; RESP 17–20; TEMP 36.5–37.7; O2SAT 93–99; BMI 16.8
[2022-05-09] MEDS: ipratropium-albuterol 3 mL Neb INHALATION ×4 (02:47→22:00)
[2022-05-09] MEDS: heparin 5,000 unit/mL INJ 1 mL 5000 UNIT SUBCUT ×3 (02:52→17:05)
[2022-05-09] MEDS: vancomycin 750 MG in sodium chloride 0.9% 250 ML 250 MG IV ×2 (02:52→15:48)
[2022-05-09] MEDS: piperacillin-tazobactam 3.375 GM in sodium chloride 0.9% (plus) 50 ML IV ×3 (04:11→17:04)
[2022-05-09] MEDS: famotidine 20 mg/2 mL INJ IVP ×2 (05:32→17:36)
[2022-05-09 06:22] LABS: Basophils % 0.2 %; Eosinophils % 0.5 %; Hematocrit 33.8 % (37.0-47.0); Hemoglobin 10.7 g/dL (11.5-15.3); Lymphocytes # 1.4 10^3/uL (0.8-4.8); Lymphocytes % 16.8 %; Mean Corpuscular HGB Conc 31.7 g/dL (30.0-36.0); Mean Corpuscular Hemoglobin 30.8 pg (28.0-34.0); Mean Corpuscular Volume 97.4 fl (81-99); Mean Platelet Volume 10.4 fL (7.4-10.4); Monocytes # 0.8 10^3/uL (0.2-0.9); Monocytes % 9.8 %; Neutrophils % 72.5 %; Nucleated Red Blood Cells % 0 %; Platelet Count 221 10^3/cmm (130-400); Red Blood Count 3.47 10^6/uL (4.1-5.3); Red Cell Distribution Width 14.3 % (12.1-15.1); White Blood Count 8.4 10^3/uL (4.0-10.0)
[2022-05-09 06:31] LABS: Estmated Average Glucose 88; Hemoglobin A1C 4.7 % (4.0-6.0)
[2022-05-09 06:49] LABS: Alanine Aminotransferase 10 U/L (0-33); Albumin Level 3.3 g/dL (3.5-5.2); Alkaline Phosphatase 86 U/L (35-105); Aspartate Amino Transferase 20 U/L (0-32); Blood Urea Nitrogen 9 mg/dL (8-23); Calcium 9.5 mg/dL (8.5-10.5); Carbon Dioxide 22 mmol/L (22-29); Chloride 107 mmol/L (98-107); Chol HDL Ratio 2.49 mg/dL (0.0-4.40); Cholesterol 152 mg/dL (0-200); Creatinine Clr Calc Pharmacy 44.6063; Globulin 2.9 g/dL (1.3-4.6); Glucose 106 mg/dL (65-115); HDL Cholesterol 61 mg/dL (60-100); LDL Cholesterol Calculated 73 mg/dL (50-129); Magnesium 1.8 mg/dL (1.7-2.3); Osmolality Calculated 291 mOsm/kg (285-295); Phosphorus 2.2 mg/dL (2.5-4.5); Sodium 141 mmol/L (136-145); Total Bilirubin 0.4 mg/dL (0.15-1.2); Total Protein 6.2 g/dL (6.6-8.7); Triglycerides 92 mg/dL (0-150); VLDL Cholestrol Calculation 18 mg/dL (0-30)
[2022-05-09 06:54] LABS: Anion Gap 15.6 (5-19); Potassium 3.6 mmol/L (3.5-5.1)
[2022-05-09] MEDS: budesonide 0.5 mg/2 mL Neb INHALATION ×2 (07:39→22:00)
[2022-05-09] MEDS: citalopram 20 mg Tablet 10 MG PO (09:36)
[2022-05-09] MEDS: metoprolol succinate ER (24 HR) 25 mg Tablet PO (09:36)
[2022-05-09] MEDS: ferrous sulfate EC 325 mg Tablet PO ×2 (09:36→17:05)
--- NOTE | 2022-05-09 10:11 | PC.CHAP ---
Pastoral Care Encounter/Spiritual Assessment Type of Contact [] Declined disease case manager visit [] Patient/Family/Request visit [] Outpatient visit [] Follow-up visit [] Physician referral [] Code/Alert [x] Routine visit [] Staff referral [] Actively dying [x] Patient sleeping [] Family support [] [] Out of room [] Palliative care [] [] Receiving care in room [] Pre-surgical visit [] Trauma [] Long length of stay [] ICU visit [] Other: Relational/Emotional Strength [x] Patient feels connected with others/family/visitors/staff [] Distress [] Loneliness/isolation [] Abandonment Spirituality of Patient [] Person of Eden [] Attends Jewish of their Eden [] Believes in Prayer [] Reads Bible or Jainism materials [] There are Spiritual issues to be addressed Ladies Attendant Interventions [] Prayer [x] Active listening [x] Non-anxious presence [x] Spiritual/emotional support [] Crisis/trauma care [] Spiritual counseling [] Bereavement support [] Provided bereavement packet [] Provided Bible/devotional materials [] Provided toy/stuffed animal, coloring book to patient or family member [] Provided Communion [] Anointing/[place] [] Salvation [] Completed spiritual assessment [] Other: Impact on Illness or Injury [] Angry [] Fearful [] Anxious [] Often cries [] Exhaustion [] Unable to work [] Unable to attend baptist [] Unable to walk/stand [] Unable to read [] Unable to drive [] Unable to eat/drink [] Unable to sleep [] Unable to be with family [] Patient intubated [] Other: Summary Pt was asleep but sister was present along with the skin care therapist for Pt. Ladies Attendant spoke with them. Time spent with patient 5m
--- NOTE | 2022-05-09 15:01 | XRR_ITS ---
PROCEDURE INFORMATION: Exam: XR Chest Exam date and time: 05/09/2022 4:29 PM Age: 71 years old Clinical indication: Shortness of breath; Additional info: SOB TECHNIQUE: Imaging protocol: Radiologic exam of the chest. Views: 1 view. COMPARISON: CR XR chest 1V portable [id number] 05/08/2022 10:54 AM FINDINGS: Lungs: Left mid to lower lung field atelectasis versus infiltrate. Pleural spaces: Small left pleural effusion. Heart/Mediastinum: Cardiomegaly. Hiatal hernia suspected. Bones/joints: Unremarkable. XR/XR chest 1V portable [id number] IMPRESSION: 1. Small left pleural effusion. 2. Cardiomegaly. 3. Left mid to lower lung field atelectasis versus infiltrate. 4. Hiatal hernia suspected.
--- NOTE | 2022-05-09 15:03 | PM.PN ---
Subjective Subjective: No acute changes overnight. Patient has remained hemodynamically stable and afebrile. Currently on 3 L saturating 96%. Still having junky cough on and off especially while talking. Seen with primary caregiver from [facility] at bedside. Also seen by speech therapy today would like to continue to keep her n.p.o. telemetry modified barium swallow can be done which is difficult to do currently because of her mentation. Vitals/I&O/Wt Last Vital Signs Temp 98.5 F 05/09/22 11:06 Pulse 99 05/09/22 13:21 Resp 18 05/09/22 13:14 BP 107/73 05/09/22 11:06 Pulse Ox 96 05/09/22 13:14 O2 Del Method 05/09/22 13:14 O2 Flow Rate 3 05/09/22 13:14 05/09/22 05/09/22 05/09/22 06:59 14:59 22:59 Intake Total 250 / 1650 50 / 50 Balance 250 / 1650 50 / 50 Weight last 48 hrs Weight 44.452 kg Weight 45.631 kg Physical Exam Narrative: General: No acute distress, on nasal cannula, WARREN x2-3, slow to respond, slightly confused HEENT: PERRLA, pupils bilaterally equal and reactive Chest:Bronchial breath sounds b/l , coarse crackles present all over the lung logan, conducted sounds present CVS: S1-S2 regular, no murmurs, no tachycardia, no gallops, no rubs Abdomen: Soft, nontender, no organomegaly, bowel sounds present, morbidly obese Neuro: No focal deficits, no facial deformity, AO x3, power 5/5 in all limbs Data 05/09/22 05:53 05/09/22 05:53 Micro: Microbiology 05/08/22 11:13 Blood Culture - Preliminary Blood NEGATIVE TO DATE 05/08/22 11:29 Blood Culture - Preliminary Blood NEGATIVE TO DATE 05/08/22 13:20 Bacterial Antigens - Final Urine Kidney 05/08/22 22:33 Gram Stain - Final Sputum - Expectorated Sputum 05/08/22 13:20 Legionella Urinary Antigen - Final Unknown Source A&P Assessment and plan (1) Acute respiratory failure with hypoxia: Insetting of coronavirus not COVID-19, pneumonia with high concerns for aspiration pneumonia. CT done in the ER concerning for hiatal hernia and diverticulum. Continue NPO. Modified barium swallow evaluation once patient is more awake. Speech evaluation. Urine Legionella, bacterial antigen negative. Sputum culture, MRSA swab pending beta blood cultures so far negative. Chest rest. For now continue with vancomycin and Zosyn. Will reassess antibiotics as per culture results. If MRSA is negative we will stop vancomycin. DuoNebs every 6 hours, budesonide twice daily. Oxygen supplementation keeping saturation over 90%. (2) Pneumonia: (3) Aspiration pneumonia: High concern for aspiration and patient especially given her mentation secondary to cerebral palsy and setting of mild dementia along with large esophageal hiatal hernia with partial intrathoracic stomach and air-filled diverticulum in the lower neck eccentric to the right. Continue NPO. We will advance diet as per swallow evaluation. It is highly possible that patient will be at a risk of aspiration with any consistency of meals. Discussed in detail with patient at bedside and her primary caregiver who is not the DPOA regarding possibility of requiring a PEG tube. Patient currently is not able to give me any answer regarding the same. We will try to reach out to her sister regarding the same. (4) Coronavirus infection: (5) SIRS (systemic inflammatory response syndrome): (6) Cerebral palsy: (7) Hiatal hernia: Plan Continue other chronic medication including baclofen, citalopram, donepezil, Seroquel. Analgesia: Tylenol as needed Glycemic control: Not needed Nutrition: N.p.o. Speech therapy evaluation. CODE STATUS: Discussed in detail with patient's next of kin/sister Ms. Cox over the phone. We discussed given her baseline poor functional capacity secondary to cerebral palsy in setting of dementia now. After the sister patient would not have wanted any kind of heroic measures in case if her heart stops. She would not want to have CPR or put on mechanical ventilation. CODE STATUS changed to DNR/DNI. Sister does think that she would be okay with getting a feeding tube if needed to maintain her nutrition. We did discuss that the feeding tube will be for long-term given her risk of aspiration even at baseline given her cerebral palsy. PUD prophylaxis: Famotidine DVT prophylaxis: Heparin 5000 every 8 hourly Discharge planning: Home with caregiver once medically stable. Continue care at [facility]. This documentation was created by [employer] crown assembly machine operator software. Every effort was made to ensure accuracy of crown assembly machine operator. Any obvious errors or omissions should be clarified with the author of the document. Attestations Medical Necessity Statement*: Requires further hospitalization for management of hypoxia secondary to coronavirus infection, aspiration pneumonia in a patient with baseline cerebral palsy Coding Level of Care Code 53042 High MDM includes risk/complexity, reviewing previous or external records, reviewing test results, ordering lab/other test(s), speaking with independent historian (other than patient), independently interpretating test(s) (not separately recorded) and discussion of management or test(s) w/ other healthcare professional and High Time for a total of 60 minutes, includes reviewing past or interval history, examining/interviewing patient, placing orders, counseling patient/family/other support, updating patient/family/other support, discussing plan of care with staff, communicating with other healthcare providers, documenting encounter and coordinating care Diagnoses Acute respiratory failure with hypoxia J96.01 Pneumonia J18.9 Aspiration pneumonia J69.0 Coronavirus infection B34.2 SIRS (systemic inflammatory response syndrome) R65.10 Cerebral palsy G80.9 Hiatal hernia K44.9
--- NOTE | 2022-05-09 20:08 | PC.NURSE ---
Patient A&O to name, but not , location, and situation. Patient was able to perform hand transportation officer, but unable to perform [id number], wyzw-ej-[id number], or other neurologic tests. Patient saturating in 90s on 3L nasal cannula. Suction is available PRN on patient's lap. Lungs are coarse with intermittent productive cough upon auscultation. Abdomen is soft and non tender, bowel sounds hyperactive in all four quadrants. Patient remains incontinent of both stool and urine. Non pitting edema present in bilateral feet. IV in right AC patent. Patient has been changed from full code to AND during dayshift, according to previous shift. New DNR band was placed on patient.
[2022-05-09] MEDS: donepezil 5 MG Tablet 10 MG PO (20:13)
[2022-05-09] MEDS: baclofen 10 mg Tablet 5 MG PO (20:13)
[2022-05-10] VITALS (11 sets, daily range): BP systolic 107–127; BP diastolic 58–74; PULSE 72–95; RESP 14–23; TEMP 36.6–37.9; O2SAT 92–97; BMI 16.6
--- NOTE | 2022-05-10 | CTR_ITS ---
PROCEDURE INFORMATION: Exam: CT Neck With Contrast Exam date and time: 05/10/2022 4:53 PM Age: 71 years old Clinical indication: Dysphagia / difficulty swallowing; Additional info: Possible zenkers, recent aspiration pneumonia TECHNIQUE: Imaging protocol: Computed tomography of the neck with contrast. Radiation optimization: All CT scans at this facility use at least one of these dose optimization techniques: automated exposure control; mA and/or kV adjustment per patient size (includes targeted exams where dose is matched to clinical indication); or iterative reconstruction. Contrast material: OMNIPAQUE 350; Contrast volume: 75 ml; Contrast route: INTRA-ARTERIAL (ARTERIAL); Other protocol: This patient has received [address] and 0 known cardiac nuclear medicine studies in the 12 months prior to the current study. COMPARISON: RF FL barium swallow modifd [id number] 05/10/2022 11:25 AM RADIATION DOSE METRICS: Total DLP (mGy-cm): 151.91 FINDINGS: Pharynx: Unremarkable. No significant tonsillar enlargement. Larynx: Unremarkable. Epiglottis is normal. Prevertebral and retropharyngeal spaces: Unremarkable. Salivary glands: Normal. Glands are normal in size. Thyroid: Normal. No enlarged or calcified nodules. Lymph nodes: Mildly prominent mediastinal lymph nodes are present, which are nonspecific and may be reactive. Trachea: Visualized trachea is unremarkable. Lungs: Unremarkable as visualized. Pleural spaces: Small left pleural effusion. There is consolidation in the left lower lobe adjacent to the pleural fluid with patchy consolidation in the posterior right upper lobe and left perihilar upper lobe as well. Esophagus: There is a large posteriorly projecting esophageal diverticulum of the lower cervical esophagus. The thoracic esophagus has retained contrast. Bones/joints: Unremarkable. No acute fracture. Soft tissues: Unremarkable. No significant soft tissue swelling. Other findings: containing retained food and oral contrast measuring 4.4 cm AP by 3.8 cm transverse and 4.[address]/CT neck w con* [id number] IMPRESSION: 1. Large posteriorly projecting lower cervical esophageal diverticulum measuring 4.4 cm. This contains retained contrast material and presumably also food. Retained contrast is also seen in the thoracic esophagus which may reflect GERD. 2. Small left pleural effusion. Infiltrates in the vuhp-ioxbvdw-swed-right lungs, suspicious for pneumonia or aspiration given history. 3. Otherwise unremarkable aerodigestive tract.
[2022-05-10 01:27] LABS: Basophils % 0.2 %; Eosinophils # 0.1 10^3/uL (0.0-0.8); Hematocrit 33.1 % (37.0-47.0); Hemoglobin 10.4 g/dL (11.5-15.3); Lymphocytes # 1.1 10^3/uL (0.8-4.8); Lymphocytes % 13.8 %; Mean Corpuscular HGB Conc 31.4 g/dL (30.0-36.0); Mean Corpuscular Hemoglobin 30.8 pg (28.0-34.0); Mean Corpuscular Volume 97.9 fl (81-99); Mean Platelet Volume 9.7 fL (7.4-10.4); Monocytes # 0.8 10^3/uL (0.2-0.9); Monocytes % 10.2 %; Neutrophils # 6.08 10^3/uL (1.8-7.7); Neutrophils % 74.6 %; Nucleated Red Blood Cells % 0 %; Platelet Count 222 10^3/cmm (130-400); Red Blood Count 3.38 10^6/uL (4.1-5.3); Red Cell Distribution Width 14.1 % (12.1-15.1); White Blood Count 8.2 10^3/uL (4.0-10.0)
[2022-05-10 01:35] LABS: Vancomycin Trough 13.6 ug/mL (10-15)
[2022-05-10 01:48] LABS: Alanine Aminotransferase 8 U/L (0-33); Albumin Level 3.2 g/dL (3.5-5.2); Alkaline Phosphatase 78 U/L (35-105); Anion Gap 15.3 (5-19); Aspartate Amino Transferase 13 U/L (0-32); Blood Urea Nitrogen 7 mg/dL (8-23); Calcium 9.7 mg/dL (8.5-10.5); Carbon Dioxide 23 mmol/L (22-29); Chloride 106 mmol/L (98-107); Creatinine Clr Calc Pharmacy 44.6063; Globulin 2.7 g/dL (1.3-4.6); Glucose 83 mg/dL (65-115); Osmolality Calculated 289 mOsm/kg (285-295); Potassium 3.3 mmol/L (3.5-5.1); Sodium 141 mmol/L (136-145); Total Bilirubin 0.4 mg/dL (0.15-1.2); Total Protein 5.9 g/dL (6.6-8.7)
[2022-05-10] MEDS: heparin 5,000 unit/mL INJ 1 mL 5000 UNIT SUBCUT ×3 (02:19→18:15)
[2022-05-10] MEDS: vancomycin 750 MG in sodium chloride 0.9% 250 ML 250 MG IV (02:23)
[2022-05-10] MEDS: ipratropium-albuterol 3 mL Neb INHALATION ×3 (03:33→13:32)
[2022-05-10] MEDS: piperacillin-tazobactam 3.375 GM in sodium chloride 0.9% (plus) 50 ML IV ×3 (03:43→18:15)
[2022-05-10] MEDS: famotidine 20 mg/2 mL INJ IVP ×2 (05:26→18:15)
[2022-05-10] MEDS: budesonide 0.5 mg/2 mL Neb INHALATION (07:51)
[2022-05-10] MEDS: ferrous sulfate EC 325 mg Tablet PO ×2 (08:23→18:15)
[2022-05-10] MEDS: citalopram 20 mg Tablet 10 MG PO (08:23)
[2022-05-10] MEDS: metoprolol succinate ER (24 HR) 25 mg Tablet PO (08:23)
--- NOTE | 2022-05-10 09:00 | FL_ITS ---
WS: [id number] FL barium swallow modifd [id number] REASON FOR EXAM: Oropharyngeal dysphagia FLUOROSCOPY TIME: 3min [id number] # OF SPOT FILMS: 5 FINDINGS: Examination was supervised by the speech therapy department. Examination was somewhat limited due to the patient's physical and mental disabilities. The swallowing of varying consistencies of barium was evaluated in the sitting upright position. No aspiration was identified. 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 Detailed analysis and report will be rendered by the speech therapy department. FL/FL barium swallow modifd [id number] IMPRESSION: Modified barium swallow as above.
--- NOTE | 2022-05-10 12:41 | P.PN_ITS ---
Subjective Subjective: No acute events overnight. Patient has remained hemodynamically stable and afebrile. Today morning examination more awake and alert. Able to answer questions. Denies any nausea, vomiting, headache. On 3 L oxygen supplementation. Has remained afebrile. Continues to remain NPO. Again discussed in detail with patient regarding agreement of PEG tube placement. Patient is agreeable. We also discussed that even with PEG tube placement she will get a significant risk for aspiration given hiatal hernia. Both the caregiver and patient verbalized understanding. Also discussed changing CODE STATUS to which she is agreeable. Vitals/I&O/Wt Last Vital Signs Temp 99 F 05/10/22 12:00 Pulse 93 05/10/22 12:00 Resp 18 05/10/22 12:00 BP 111/59 05/10/22 12:00 Pulse Ox 92 05/10/22 12:00 O2 Del Method 05/10/22 07:57 O2 Flow Rate 3 05/10/22 03:33 FiO2 3 05/10/22 07:57 05/09/22 05/10/22 05/10/22 22:59 06:59 14:59 Intake Total 650 / 700 250 / 950 50 / 50 Balance 650 / 700 250 / 950 50 / 50 Weight last 48 hrs Weight 42.864 kg Weight 44.027 kg Weight 44.452 kg Weight 45.631 kg Physical Exam Narrative: General: No acute distress, on nasal cannula, AAO x2-3, slow to res pond, slightly confused HEENT: PERRLA, pupils bilaterally equal and reactive Chest:Bronchial breath sounds b/l , coarse crackles present all over the lung logan, conducted sounds present CVS: S1-S2 regular, no murmurs, no tachycardia, no gallops, no rubs Abdomen: Soft, nontender, no organomegaly, bowel sounds present, morbidly obese Neuro: No focal deficits, no facial deformity, AO x3, power 5/5 in all limbs Data 05/10/22 00:50 05/10/22 00:50 Micro: Microbiology 05/08/22 13:20 Urine Culture - Preliminary Urine,Clean Catch Gram Negative Rods 05/08/22 22:33 MRSA Culture - Final Nose 05/08/22 11:13 Blood Culture - Preliminary Blood NEGATIVE TO DATE 05/08/22 11:29 Blood Culture - Preliminary Blood NEGATIVE TO DATE 05/08/22 13:20 Bacterial Antigens - Final Urine Kidney 05/08/22 22:33 Gram Stain - Final Sputum - Expectorated Sputum A&P Assessment and plan (1) Acute respiratory failure with hypoxia: Insetting of coronavirus not COVID-19, pneumonia with high concerns for aspiration pneumonia. CT done in the ER concerning for hiatal hernia and diverticulum. Continue NPO. Modified barium swallow evaluation once patient is more awake. Speech evaluation. Urine Legionella, bacterial antigen negative. Sputum culture, MRSA swab pending beta blood cultures so far negative. Chest rest. For now continue with vancomycin and Zosyn. Will reassess antibiotics as per culture results. If MRSA is negative we will stop vancomycin. DuoNebs every 6 hours, budesonide twice daily. Oxygen supplementation keeping saturation over 90%. (2) Pneumonia: (3) Aspiration pneumonia: High concern for aspiration and patient especially given her mentation secondary to cerebral palsy and setting of mild dementia along with large esophageal hiatal hernia with partial intrathoracic stomach and air-filled diverticulum in the lower neck eccentric to the right. Continue NPO. We will advance diet as per swallow evaluation. It is highly possible that patient will be at a risk of aspiration with any consistency of meals. Discussed in detail with patient at bedside and her primary caregiver who is not the DPOA regarding possibility of requiring a PEG tube. Patient currently is not able to give me any answer regarding the same. We will try to reach out to her sister regarding the same. (4) Coronavirus infection: (5) SIRS (systemic inflammatory response syndrome): (6) Cerebral palsy: (7) Hiatal hernia: (8) Zenker's diverticulum: Plan Continue other chronic medication including baclofen, citalopram, donepezil, Seroquel. Analgesia: Tylenol as needed Glycemic control: Not needed Nutrition: N.p.o. Speech therapy evaluation. CODE STATUS: Discussed in detail with patient's next of kin/sister Ms. Cox over the phone. We discussed given her baseline poor functional capacity secondary to cerebral palsy in setting of dementia now. After the sister patient would not have wanted any kind of heroic measures in case if her heart stops. She would not want to have CPR or put on mechanical ventilation. CODE STATUS changed to DNR/DNI. Sister does think that she would be okay with getting a feeding tube if needed to maintain her nutrition. We did discuss that the feeding tube will be for long-term given her risk of aspiration even at baseline given her cerebral palsy. PUD prophylaxis: Famotidine DVT prophylaxis: Heparin 5000 every 8 hourly Discharge planning: Home with caregiver once medically stable. [facility]. Plan for the day: Blood culture negative, sputum culture pending. MRSA negative. Urine culture growing gram-negative rods. Stop vancomycin. Continue NPO. Follow modified barium swallow results. CT neck with contrast for further evaluation of Zenker's diverticulum. We will consult surgery for possible PEG tube versus J-tube placement given significant hiatal hernia. Again discussed in detail with patient at bedside today along with caregiver. Patient is agreeable to PEG tube placement and c hange in CODE STATUS. We did discuss that even with a PEG tube/J-tube placement she will be at considerable aspiration risk given significant hiatal hernia which cannot be repaired as she is not a good candidate surgically. Oxygen supplementation keeping saturation over 90%. Continue holding nightly Seroquel. This documentation was created by [employer] fibreglass gun hand software. Every effort was made to ensure accuracy of fibreglass gun hand. Any obvious errors or omissions should be clarified with the author of the document. Attestations Medical Necessity Statement*: Requires further hospitalization for management of hypoxia, altered mental status in setting of aspiration pneumonia, coronavirus infection, UTI while definite plan for nutrition with possible PEG tube placement is sought. Coding Level of Care Code 64304 High MDM includes risk/complexity, reviewing previous or external records, reviewing test results, ordering lab/other test(s), speaking with independent historian (other than patient), independently interpretating test(s) (not separately recorded) and discussion of management or test(s) w/ other healthcare professional and High Time for a total of 50 minutes, includes reviewing past or interval history, examining/interviewing patient, placing orders, counseling patient/family/other support, updating patient/family/other support, discussing plan of care with staff, communicating with other healthcare providers, documenting encounter and coordinating care Diagnoses Acute respiratory failure with hypoxia J96.01 Pneumonia J18.9 Aspiration pneumonia J69.0 Coronavirus infection B34.2 SIRS (systemic inflammatory response syndrome) R65.10 Cerebral palsy G80.9 Hiatal hernia K44.9 Zenker's diverticulum K22.5
[2022-05-10] MEDS: lanolin oint 7 gm 1 APPLIC TOPICAL (14:30)
[2022-05-10] MEDS: dextrose 5%-sod chloride 0.9% 1,000 ML 50 ML IV (14:30)
[2022-05-10] MEDS: iohexol 350 mg/mL 500 mL Btl (per mL) IV (17:52)
[2022-05-10] MEDS: donepezil 5 MG Tablet 10 MG PO (20:25)
[2022-05-10] MEDS: baclofen 10 mg Tablet 5 MG PO (20:25)
[2022-05-11] VITALS (18 sets, daily range): BP systolic 99–164; BP diastolic 50–94; PULSE 60–83; RESP 16–28; TEMP 36.7–37.4; O2SAT 89–100
[2022-05-11] MEDS: heparin 5,000 unit/mL INJ 1 mL 5000 UNIT SUBCUT ×3 (02:07→16:49)
[2022-05-11] MEDS: piperacillin-tazobactam 3.375 GM in sodium chloride 0.9% (plus) 50 ML IV ×3 (02:07→21:11)
[2022-05-11] MEDS: ipratropium-albuterol 3 mL Neb INHALATION ×4 (02:57→20:04)
[2022-05-11] MEDS: famotidine 20 mg/2 mL INJ IVP ×2 (05:33→17:41)
[2022-05-11 07:04] LABS: Basophils % 0.3 %; Eosinophils # 0.2 10^3/uL (0.0-0.8); Eosinophils % 2.2 %; Hematocrit 30.7 % (37.0-47.0); Hemoglobin 9.5 g/dL (11.5-15.3); Lymphocytes # 1.2 10^3/uL (0.8-4.8); Lymphocytes % 17.9 %; Mean Corpuscular HGB Conc 30.9 g/dL (30.0-36.0); Mean Corpuscular Hemoglobin 30.7 pg (28.0-34.0); Mean Corpuscular Volume 99.4 fl (81-99); Monocytes # 0.8 10^3/uL (0.2-0.9); Monocytes % 12.2 %; Neutrophils # 4.59 10^3/uL (1.8-7.7); Neutrophils % 67.1 %; Nucleated Red Blood Cells % 0 %; Platelet Count 257 10^3/cmm (130-400); Red Blood Count 3.09 10^6/uL (4.1-5.3); Red Cell Distribution Width 14.4 % (12.1-15.1); White Blood Count 6.8 10^3/uL (4.0-10.0)
[2022-05-11 07:29] LABS: Alanine Aminotransferase 8 U/L (0-33); Albumin Level 2.8 g/dL (3.5-5.2); Alkaline Phosphatase 98 U/L (35-105); Aspartate Amino Transferase 14 U/L (0-32); Blood Urea Nitrogen 7 mg/dL (8-23); Calcium 10.5 mg/dL (8.5-10.5); Carbon Dioxide 24 mmol/L (22-29); Chloride 112 mmol/L (98-107); Globulin 2.8 g/dL (1.3-4.6); Glucose 125 mg/dL (65-115); Osmolality Calculated 303 mOsm/kg (285-295); Sodium 147 mmol/L (136-145); Total Bilirubin 0.4 mg/dL (0.15-1.2); Total Protein 5.6 g/dL (6.6-8.7)
[2022-05-11] MEDS: budesonide 0.5 mg/2 mL Neb INHALATION ×2 (08:03→20:04)
[2022-05-11] MEDS: citalopram 20 mg Tablet 10 MG PO (08:29)
[2022-05-11] MEDS: ferrous sulfate EC 325 mg Tablet PO ×2 (08:29→16:49)
[2022-05-11] MEDS: metoprolol succinate ER (24 HR) 25 mg Tablet PO (08:30)
[2022-05-11] MEDS: D5-NS 0.45% + KCL 20 mEq 20 MEQ/1,000 ML BAG 75 MEQ IV (10:05)
--- NOTE | 2022-05-11 10:40 | PM.CONSULT ---
Providers/Reason For Consult Consulting Physician/Specialty*: Dr. Ricardo Flynn, DO/General surgery Reason for Consult*: Request for PEG tube Attending Physician: Bunny Kuhn MD Primary Care Provider: Abran Rosa MD History of Present Illness History of Present Illness Melany Horne is a 71 year old female who is nonverbal with cerebral palsy, who has been having increasing dysphagia. HPI and review of systems are limited secondary to her nonverbal status. Her sister is [employer] and giving consent. Review of Systems General: Reports: ROS unobtainable due to medical condition Medications/Allergies Home Medications Medication Instructions Recorded Confirmed Last Taken Type acetaminophen 325 mg tablet 650 mg PO QID PRN Pain 06/03/20 05/08/22 06/20/20 History (Tylenol) baclofen 5 mg tablet 5 mg PO TID PRN Muscle Spasm 06/03/20 05/08/22 06/20/20 History donepezil 10 mg tablet (Aricept) 10 mg PO BEDTIME@06/03/20 05/08/22 06/20/20 History ferrous sulfate 325 mg (65 mg 325 mg PO BID 06/03/20 05/08/22 05/08/22 History iron) tablet loperamide 2 mg capsule (Imodium 2 mg PO DAILY PRN Diarrhea 06/03/20 05/08/22 06/20/20 History A-D) acetaminophen 325 mg tablet 650 mg PO DAILY@05/08/22 05/08/22 05/08/22 History (Tylenol) baclofen 5 mg tablet 5 mg PO BEDTIME@05/08/22 05/08/22 Unknown History cholecalciferol (vitamin D3) 25 3,000 unit PO DAILY@05/08/22 05/08/22 05/08/22 History mcg (1,000 unit) capsule (Vitamin D3) citalopram 10 mg tablet 10 mg PO DAILY@05/08/22 05/08/22 05/08/22 History docusate sodium 100 mg capsule 100 mg PO BID PRN Constipation 05/08/22 05/08/22 Unknown History (DOK) fluoride (sodium) 1.1 % dental See Rx Instructions .Route .COMPLEX 05/08/22 05/08/22 Unknown History cream (SF 5000 Plus) fluticasone propionate 50 1 spray intranasal BID PRN allergy 05/08/22 05/08/22 Unknown History mcg/actuation nasal symptoms spray,suspension (Flonase Allergy Relief) loratadine 10 mg tablet 10 mg PO DAILY PRN Allergy Symptoms 05/08/22 05/08/22 Unknown History metoprolol succinate 25 mg 25 mg PO DAILY@05/08/22 05/08/22 05/08/22 History tablet,extended release 24 hr polyethylene glycol 3350 17 8.5 g PO EVERY OTHER DAY 05/08/22 05/08/22 Unknown History gram/dose oral powder (Miralax) vitamin with calcium 1 tab PO DAILY@05/08/22 05/08/22 05/08/22 History no.72-iron 27 mg-folic acid 1 mg tablet (WesTab Plus) quetiapine 25 mg tablet 25 mg PO BEDTIME@20 05/08/22 05/08/22 Unknown History Allergies Allergy/AdvReac Type Severity Reaction Status Date / Time ibuprofen Allergy Unknown Unknown Verified 05/08/22 11:31 Sulfa (Sulfonamide Allergy Unknown Unknown Verified 05/08/22 11:31 Antibiotics) naproxen Allergy Unknown Verified 05/08/22 11:31 strawberry Allergy Unknown Verified 05/08/22 11:32 dove body wash Allergy Unknown Uncoded 05/08/22 11:32 Current Medications Generic Name Dose Route Start Last Admin Trade Name Freq PRN Reason Stop Dose Admin Albuterol/Ipratropium 3 ml 05/08/22 20:00 05/11/22 08:03 Ipratropium-Albuterol 3 Ml Neb INHALATION 3 ml Q6H.RESP ABBY Administration Baclofen 5 mg 05/08/22 20:00 05/10/22 20:25 Baclofen 10 Mg Tablet PO 5 mg BEDTIME@20 ABBY Administration Budesonide 0.5 mg 05/08/22 20:00 05/11/22 08:03 Budesonide 0.5 Mg/2 Ml Neb INHALATION 0.5 mg BID.RESPIRATORY ABBY Administration Citalopram Hydrobromide 10 mg 05/09/22 09:00 05/11/22 08:29 Citalopram 20 Mg Tablet PO 10 mg DAILY@09 ABBY Administration Donepezil HCl 10 mg 05/08/22 21:00 05/10/22 20:25 Donepezil 5 Mg Tablet PO 10 mg BEDTIME@21 ABBY Administration Famotidine 20 mg 05/08/22 18:00 05/11/22 05:33 Famotidine 20 Mg/2 Ml Inj IVP 20 mg Q12H ABBY Administration Ferrous Sulfate 325 mg 05/08/22 18:00 05/11/22 08:29 Ferrous Sulfate Ec 325 Mg Tablet PO 325 mg BID ABBY Administration Heparin Sodium (Porcine) 5,000 unit 05/08/22 18:00 05/11/22 02:07 Heparin 5,000 Unit/Ml Inj 1 Ml SUBCUT 5,000 unit Q8H ABBY Administration Piperacillin Sod/Tazobactam 50 mls @ 12.5 mls/hr 05/08/22 18:00 05/11/22 05:44 Sod 3.375 gm/ Sodium Chloride IV Infused Q8H ABBY Infusion Protocol As Directed Potassium Chloride/Dextrose/Sod Cl 20 meq in 1,000 mls @ 75 mls/hr 05/11/22 08:45 05/11/22 10:05 D5-Ns 0.45% + Kcl 20 Meq IV 75 mls/hr .[id number] ABBY Administration Lanolin 1 applic 05/10/22 14:16 05/10/22 14:30 Lanolin Oint 7 Gm TOPICAL 1 applic PRN PRN Administration DRYNESS Metoprolol Succinate 25 mg 05/09/22 09:00 05/11/22 08:30 Metoprolol Succinate Er (24 Hr) 25 Mg Tablet PO 25 mg DAILY@09 ABBY Administration Polyethylene Glycol 8.5 gm 05/10/22 09:00 05/10/22 08:23 Polyethylene Glycol 3350 Pkt 17 Gm PO Not Given EVERY OTHER DAY [facility] Quetiapine Fumarate 25 mg 05/08/22 20:00 05/08/22 22:23 Quetiapine 25 Mg Tablet PO 25 mg BEDTIME@20 ABBY Administration PFSH Acute PFSH: Medical History Anemia Cerebral palsy Dementia Depression Hyperparathyroidism Hypertension Osteoarthritis Surgical History History of colonoscopy (06/21/20) Diverticulosis Internal hemorrhoids History of hysterectomy Social History Smoking and tobacco status: never smoked Alcohol intake: never History of recent travel: No Vitals/I&O/Wt Last Vital Signs Temp 99.1 F 05/11/22 07:53 Pulse 77 05/11/22 08:12 Resp 16 05/11/22 08:00 BP 117/50 05/11/22 07:53 Pulse Ox 98 05/11/22 08:00 O2 Del Method 05/11/22 08:00 O2 Flow Rate 3 05/11/22 08:00 FiO2 3 05/10/22 07:57 05/10/22 05/11/22 05/11/22 22:59 06:59 14:59 Intake Total 50 / 150 50 / 200 Balance 50 / 150 50 / 200 Weight last 48 hrs Weight 95 lb 12.8 oz Weight 94 lb 8 oz Weight 97 lb 1 oz Physical Exam Narrative: General : Patient is well developed , no acute distress Head : Normal cephalic, a-traumatic. Ears : Pinnae and external canal are normal. Eyes : PERRLA, Sclera and injection are normal. No conjunctival discharge. Nose : Mucous membranes are without erythema. Throat : buccal mucosa is normal, gums are without significant recession or hypertrophy. Lungs : Equal chest rise bilaterally, no use of accessory muscles, trachea is midline. Cor : Rate and rhythm are normal. Abdomen : Soft, ND, NT, no g/r/m Extremities : No edema, no cyanosis or clubbing, dorsalis pedis pulses are present bilaterally, non-tender to palpation of calves. Upper extremities are normal bilaterally. Data 05/11/22 05:17 05/11/22 05:17 Micro: Microbiology 05/08/22 22:33 Gram Stain - Final Sputum - Expectorated Sputum Sputum Culture - Preliminary 05/08/22 13:20 Urine Culture - Preliminary Urine,Clean Catch Gram Negative Rods A&P Assessment and plan (1) Cerebral palsy: (2) Dysphagia: Plan PEG tube insertion The risks and benefits of the procedure, including bleeding, infection, intestinal perforation requiring surgery, feeding tube malfunction, were explained to the patient and the DPOA. The DPOA is understanding of the risks and wishes to proceed. Coding Level of Care Code Acute Code for g Fwd Diagnoses Cerebral palsy G80.9 Dysphagia R13.10
[2022-05-11] MEDS: sodium chloride 0.9% 1,000 ML 30 ML IV (10:49)
--- NOTE | 2022-05-11 11:07 | ANES.PREANE2 ---
Pre-Anesthetic Assessment Height/Weight: Height 1.63 m Weight 43.454 kg Temp Pulse Resp BP Pulse Ox O2 Del Method O2 Flow Rate 99.1 F 77 16 117/50 98 3 05/11/22 07:53 05/11/22 08:12 05/11/22 08:00 05/11/22 07:53 05/11/22 08:00 05/11/22 08:00 05/11/22 08:00 FiO2 3 05/10/22 07:57 Preop Diagnosis: diagnostic Operation Date: 05/11/22 11:00 Proposed Procedures p PEG Tube Insertion(Not Applicable) - Ricardo Flynn DO Familial anesthetic complications: none Was Beta Kayleen taken within 24 hours: N/A Was Clonidine taken within 24 hours: N/A Last Intake: 20:00 Social No alcohol and No tobacco Exam alert and regular rate & rhythm pt with rhonchi noted. Pt is non communicative Airway Submandibular: within normal limits Cervical ROM: within normal limits Mallampati: Class II Dentition: full Pulmonary Exertional Dyspnea and Shortness of Breath aspiration pneumonia CV/HEM Hypertension None reported Hepatic None reported GI chronic aspiration Metabolic None reported Musc/skel Osteoarthritis/DJD and Weakness Neuropsych cerebral palsy Anesthetic Plan ASA status: 3 Anesthesia: MAC Risk of > 500 ml blood loss (7ml/kg in children): No Medications/Allergies Home Medications Medication Instructions Recorded Confirmed Last Taken Type acetaminophen 325 mg tablet 650 mg PO QID PRN Pain 06/03/20 05/08/22 06/20/20 History (Tylenol) baclofen 5 mg tablet 5 mg PO TID PRN Muscle Spasm 06/03/20 05/08/22 06/20/20 History donepezil 10 mg tablet (Aricept) 10 mg PO BEDTIME@06/03/20 05/08/22 06/20/20 History ferrous sulfate 325 mg (65 mg 325 mg PO BID 06/03/20 05/08/22 05/08/22 History iron) tablet loperamide 2 mg capsule (Imodium 2 mg PO DAILY PRN Diarrhea 06/03/20 05/08/22 06/20/20 History A-D) acetaminophen 325 mg tablet 650 mg PO DAILY@05/08/22 05/08/22 05/08/22 History (Tylenol) baclofen 5 mg tablet 5 mg PO BEDTIME@05/08/22 05/08/22 Unknown History cholecalciferol (vitamin D3) 25 3,000 unit PO DAILY@05/08/22 05/08/22 05/08/22 History mcg (1,000 unit) capsule (Vitamin D3) citalopram 10 mg tablet 10 mg PO DAILY@05/08/22 05/08/22 05/08/22 History docusate sodium 100 mg capsule 100 mg PO BID PRN Constipation 05/08/22 05/08/22 Unknown History (DOK) fluoride (sodium) 1.1 % dental See Rx Instructions .Route .COMPLEX 05/08/22 05/08/22 Unknown History cream (SF 5000 Plus) fluticasone propionate 50 1 spray intranasal BID PRN allergy 05/08/22 05/08/22 Unknown History mcg/actuation nasal symptoms spray,suspension (Flonase Allergy Relief) loratadine 10 mg tablet 10 mg PO DAILY PRN Allergy Symptoms 05/08/22 05/08/22 Unknown History metoprolol succinate 25 mg 25 mg PO DAILY@05/08/22 05/08/22 05/08/22 History tablet,extended release 24 hr polyethylene glycol 3350 17 8.5 g PO EVERY OTHER DAY 05/08/22 05/08/22 Unknown History gram/dose oral powder (Miralax) vitamin with calcium 1 tab PO DAILY@05/08/22 05/08/22 05/08/22 History no.72-iron 27 mg-folic acid 1 mg tablet (WesTab Plus) quetiapine 25 mg tablet 25 mg PO BEDTIME@05/08/22 05/08/22 Unknown History Allergies Allergy/AdvReac Type Severity Reaction Status Date / Time ibuprofen Allergy Unknown Unknown Verified 05/08/22 11:31 Sulfa (Sulfonamide Allergy Unknown Unknown Verified 05/08/22 11:31 Antibiotics) naproxen Allergy Unknown Verified 05/08/22 11:31 strawberry Allergy Unknown Verified 05/08/22 11:32 dove body wash Allergy Unknown Uncoded 05/08/22 11:32 Current Medications Generic Name Dose Route Start Last Admin Trade Name Freq PRN Reason Stop Dose Admin Albuterol/Ipratropium 3 ml 05/08/22 20:00 05/11/22 08:03 Ipratropium-Albuterol 3 Ml Neb INHALATION 3 ml Q6H.RESP ABBY Administration Baclofen 5 mg 05/08/22 20:00 05/10/22 20:25 Baclofen 10 Mg Tablet PO 5 mg BEDTIME@20 ABBY Administration Budesonide 0.5 mg 05/08/22 20:00 05/11/22 08:03 Budesonide 0.5 Mg/2 Ml Neb INHALATION 0.5 mg BID.RESPIRATORY ABBY Administration Citalopram Hydrobromide 10 mg 05/09/22 09:00 05/11/22 08:29 Citalopram 20 Mg Tablet PO 10 mg DAILY@09 ABBY Administration Donepezil HCl 10 mg 05/08/22 21:00 05/10/22 20:25 Donepezil 5 Mg Tablet PO 10 mg BEDTIME@21 ABBY Administration Famotidine 20 mg 05/08/22 18:00 05/11/22 05:33 Famotidine 20 Mg/2 Ml Inj IVP 20 mg Q12H ABBY Administration Ferrous Sulfate 325 mg 05/08/22 18:00 05/11/22 08:29 Ferrous Sulfate Ec 325 Mg Tablet PO 325 mg BID ABBY Administration Heparin Sodium (Porcine) 5,000 unit 05/08/22 18:00 05/11/22 02:07 Heparin 5,000 Unit/Ml Inj 1 Ml SUBCUT 5,000 unit Q8H ABBY Administration Piperacillin Sod/Tazobactam 50 mls @ 12.5 mls/hr 05/08/22 18:00 05/11/22 05:44 Sod 3.375 gm/ Sodium Chloride IV Infused Q8H ABBY Infusion Protocol As Directed Potassium Chloride/Dextrose/Sod Cl 20 meq in 1,000 mls @ 75 mls/hr 05/11/22 08:45 05/11/22 10:05 D5-Ns 0.45% + Kcl 20 Meq IV 75 mls/hr .[id number] ABBY Administration Sodium Chloride 1,000 mls @ 30 mls/hr 05/11/22 10:30 05/11/22 10:49 Sodium Chloride 0.9% IV 05/12/22 10:29 30 mls/hr .Q24H ABBY Administration Lanolin 1 applic 05/10/22 14:16 05/10/22 14:30 Lanolin Oint 7 Gm TOPICAL 1 applic PRN PRN Administration DRYNESS Metoprolol Succinate 25 mg 05/09/22 09:00 05/11/22 08:30 Metoprolol Succinate Er (24 Hr) 25 Mg Tablet PO 25 mg DAILY@09 [facility] Administration Polyethylene Glycol 8.5 gm 05/10/22 09:00 05/10/22 08:23 Polyethylene Glycol 3350 Pkt 17 Gm PO Not Given EVERY OTHER DAY [facility] Quetiapine Fumarate 25 mg 05/08/22 20:00 05/08/22 22:23 Quetiapine 25 Mg Tablet PO 25 mg BEDTIME@20 [facility] Administration PFSH Anesthesia Medical History Anemia Cerebral palsy Dementia Depression Hyperparathyroidism Hypertension Osteoarthritis Surgical History History of colonoscopy (06/21/20) Diverticulosis Internal hemorrhoids History of hysterectomy Social History Smoking and tobacco status: never smoked Alcohol intake: never History of recent travel: No Data Anesthesia 05/11/22 05:17 05/11/22 05:17 Short CBC 05/10/22 05/11/22 Range/Units 00:50 05:17 WBC 8.2 6.8 (4.0-10.0) 10^3/uL Hgb 10.4 L 9.5 L (11.5-15.3) g/dL Hct 33.1 L 30.7 L (37.0-47.0) % MCV 97.9 99.4 H (81-99) fl Plt Count 222 257 (130-400) 10^3/cmm Neut % (Auto) 74.6 67.1 % Neut # (Auto) 6.08 4.59 (1.8-7.7) 10^3/uL BMP 05/10/22 05/11/22 00:50 05:17 Sodium 141 147 H Potassium 3.3 L 3.0 L Chloride 106 112 H Carbon Dioxide 23 24 BUN 7 L 7 L Creatinine 0.5 0.6 Glucose 83 125 H Calcium 9.7 10.5 Liver Function 05/10/22 05/11/22 Range/Units 00:50 05:17 Total Bilirubin 0.4 0.4 (0.15-1.2) mg/dL AST 13 14 (0-32) U/L ALT 8 8 (0-33) U/L Alkaline Phosphatase 78 98 (35-105) U/L Albumin 3.2 L 2.8 L (3.5-5.2) g/dL Microbiology 05/08/22 22:33 Gram Stain - Final Sputum - Expectorated Sputum Sputum Culture - Preliminary 05/08/22 13:20 Urine Culture - Preliminary Urine,Clean Catch Gram Negative Rods Cardiac Studies: No Data to Display
--- NOTE | 2022-05-11 13:39 | PC.NUTR ---
Recommend consideration of Jevity 1.2 or similar product beginning with 10 mls/hr and increasing 10 mls Q8H as tolerated until a goal rate of 40 mls/hr is reached with fresh water flushes 80 mls Q4H or per MD discretion. This will provide 1152 kcals or 81% Pt's estimated calorie needs, 53 grams protein or 88% Pt's estimated protein needs and 775 mls+480 mls flushes or 88% Pt's estimated fluid needs.
--- NOTE | 2022-05-11 13:50 | PC.NUTR ---
When medically appropriate, recommend consideration of Jevity 1.2 or similar product beginning @ 10 mls/hr and increasing 10 mls Q8H as tolerated until a goal rate of 40 mls/hr is reached with fresh water flushes 80 mls Q4H or per MD discretion. Details in RD assessment.
--- NOTE | 2022-05-11 14:02 | ANE.PACU2 ---
Inpatient post-anesthesia follow up: Airway intact: Yes Vital signs: Temperature 99.1 F Pulse Rate 70 Respiratory Rate 18 Blood Pressure 126/63 Pulse Oximetry 96 Oxygen Delivery Me thod Nasal Cannula Oxygen Flow Rate 3 Fraction of Inspir ed Oxygen 3 Hydration adequate: Yes Nausea and vomiting: No Pain level: 1 Mental status: Baseline
--- NOTE | 2022-05-11 14:21 | PM.PN ---
Subjective Subjective: No acute events overnight. Patient laying comfortably in bed today. Denies any nausea, vomiting, headache. Currently on 2 to 3 L oxygen supplementation. Seen with multiple family members at bedside including her sister Ms. Cox at bedside. Patient states her breathing is a little better. Patient still having gurgling sound on and off during conversation and having cough with sips of water. Appreciate CT neck results from yesterday. We again discussed possibility of feeding tube placement today. We also discussed that even after feeding tube placement patient would be at high risk for aspiration given extensive hiatal hernia and Zenker's diverticulum. We discussed options of continuing with oral diet which she is on currently knowing the risks of aspiration and if and when she aspirates at that point [facility] versus placement of PEG tube even though we know the chances of aspiration will be high though a little less than oral intake and if she aspirates at that point to transition to hospice [facility] at [facility]. Multiple family members including Ms. Cox verbalized understanding and would want to go ahead with PEG tube placement and go from there. Vitals/I&O/Wt Last Vital Signs Temp 99.1 F 05/11/22 07:53 Pulse 75 05/11/22 14:02 Resp 18 05/11/22 13:55 BP 126/63 05/11/22 12:20 Pulse Ox 96 05/11/22 13:55 O2 Del Method 05/11/22 13:55 O2 Flow Rate 3 05/11/22 13:55 FiO2 3 05/10/22 07:57 05/10/22 05/11/22 05/11/22 22:59 06:59 14:59 Intake Total 50 / 150 50 / 200 500 / 500 Balance 50 / 150 50 / 200 500 / 500 Weight last 48 hrs Weight 43.454 kg Weight 42.864 kg Weight 44.027 kg Physical Exam Narrative: General: No acute distress, on nasal cannula, AAO x2-3, slow to respond, slightly confused HEENT: PERRLA, pupils bilaterally equal and reactive Chest:Bronchial breath sounds b/l , coarse crackles present all over the lung logan, conducted sounds present CVS: S1-S2 regular, no murmurs, no tachycardia, no gallops, no rubs Abdomen: Soft, nontender, no organomegaly, bowel sounds present, morbidly obese Neuro: No focal deficits, no facial deformity, AO x3, power 5/5 in all limbs Data 05/11/22 05:17 05/11/22 05:17 Micro: Microbiology 05/08/22 22:33 Gram Stain - Final Sputum - Expectorated Sputum Sputum Culture - Preliminary 05/08/22 13:20 Urine Culture - Preliminary Urine,Clean Catch Gram Negative Rods A&P Assessment and plan (1) Acute respiratory failure with hypoxia: Insetting of coronavirus not COVID-19, pneumonia with high concerns for aspiration pneumonia. CT done in the ER concerning for hiatal hernia and diverticulum. Continue NPO. Modified barium swallow evaluation once patient is more awake. Speech evaluation. Urine Legionella, bacterial antigen negative. Sputum culture, MRSA swab pending beta blood cultures so far negative. Chest rest. For now continue with vancomycin and Zosyn. Will reassess antibiotics as per culture results. If MRSA is negative we will stop vancomycin. DuoNebs every 6 hours, budesonide twice daily. Oxygen supplementation keeping saturation over 90%. (2) Pneumonia: (3) Aspiration pneumonia: High concern for aspiration and patient especially given her mentation secondary to cerebral palsy and setting of mild dementia along with large esophageal hiatal hernia with partial intrathoracic stomach and air-filled diverticulum in the lower neck eccentric to the right. Continue NPO. We will advance diet as per swallow evaluation. It is highly possible that patient will be at a risk of aspiration with any consistency of meals. Discussed in detail with patient at bedside and her primary caregiver who is not the DPOA regarding possibility of requiring a PEG tube. Patient currently is not able to give me any answer regarding the same. We will try to reach out to her sister regarding the same. (4) Coronavirus infection: (5) Hiatal hernia: (6) Zenker's diverticulum: (7) Dysphagia: (8) Hypernatremia: (9) Hypokalemia: (10) SIRS (systemic inflammatory response syndrome): (11) Cerebral palsy: Plan Continue other chronic medication including baclofen, citalopram, donepezil, Seroquel. Analgesia: Tylenol as needed Glycemic control: Not needed Nutrition: N.p.o. Speech therapy evaluation. CODE STATUS: Discussed in detail with patient's next of kin/sister Ms. Cox over the phone. We discussed given her baseline poor functional capacity secondary to cerebral palsy in setting of dementia now. After the sister patient would not have wanted any kind of heroic measures in case if her heart stops. She would not want to have CPR or put on mechanical ventilation. CODE STATUS changed to DNR/DNI. Sister does think that she would be okay with getting a feeding tube if needed to maintain her nutrition. We did discuss that the feeding tube will be for long-term given her risk of aspiration even at baseline given her cerebral palsy. PUD prophylaxis: Famotidine DVT prophylaxis: Heparin 5000 every 8 hourly Discharge planning: Home with caregiver once medically stable. [facility] care at [facility]. Plan for the day: Continue to follow sputum culture. Still growing gram-negative rods. Awaiting and desiccation and sensitivities. For now continue with Zosyn. Appreciate CT results with extensive posterior directed Zenker's diverticulum and hiatal hernia with portion of abdomen and thorax. Plan for feeding tube placement today. Patient developing hyper natremia and hypokalemia given n.p.o. Started on D5 half NS at 75 cc/h with 20 mg of potassium. Repeat BMP in afternoon at around 4 PM for further evaluation of sodium levels. This documentation was created by [employer] software. Every effort was made to ensure accuracy of [employer] chicken and fish. Any obvious errors or omissions should be clarified with the author of the document. Attestations Medical Necessity Statement*: Requires further hospitalization for hypoxia in setting of aspiration pneumonia requiring feeding tube placement given baseline cerebral palsy, extensive hiatal hernia and Zenker's diverticulum, hypernatremia while feeding tube was placed. and High Time for a total of 50 minutes, includes reviewing past or interval history, examining/interviewing patient, placing orders, counseling patient/family/other support, updating patient/family/other support, discussing plan of care with staff, communicating with other healthcare providers, documenting encounter and coordinating care Diagnoses Acute respiratory failure with hypoxia J96.01 Pneumonia J18.9 Aspiration pneumonia J69.0 Coronavirus infection B34.2 Hiatal hernia K44.9 Zenker's diverticulum K22.5 Dysphagia R13.10 Hypernatremia E87.0 Hypokalemia E87.6 SIRS (systemic inflammatory response syndrome) R65.10 Cerebral palsy G80.9
--- NOTE | 2022-05-11 16:32 | PC.NURSE ---
Per Dr. Flynn peg tube feedings can start 24 hours after surgery.
[2022-05-11] MEDS: baclofen 10 mg Tablet 5 MG PO (21:08)
[2022-05-11] MEDS: donepezil 5 MG Tablet 10 MG PO (21:10)
[2022-05-11] MEDS: quetiapine 25 mg Tablet PO (21:10)
[2022-05-12] VITALS (13 sets, daily range): BP systolic 114–135; BP diastolic 61–80; PULSE 68–87; RESP 16–24; TEMP 36.8–37.3; O2SAT 87–99
[2022-05-12] MEDS: ipratropium-albuterol 3 mL Neb INHALATION ×4 (01:39→20:19)
[2022-05-12] MEDS: D5-NS 0.45% + KCL 20 mEq 20 MEQ/1,000 ML BAG 75 MEQ IV (02:33)
[2022-05-12] MEDS: heparin 5,000 unit/mL INJ 1 mL 5000 UNIT SUBCUT ×3 (02:34→17:44)
[2022-05-12] MEDS: famotidine 20 mg/2 mL INJ IVP ×2 (05:44→17:44)
[2022-05-12] MEDS: piperacillin-tazobactam 3.375 GM in sodium chloride 0.9% (plus) 50 ML IV ×3 (05:45→21:09)
[2022-05-12] MEDS: budesonide 0.5 mg/2 mL Neb INHALATION ×2 (07:55→20:19)
[2022-05-12] MEDS: citalopram 20 mg Tablet 10 MG PO (09:31)
[2022-05-12] MEDS: acetaminophen 325 mg Tablet 650 MG PO (09:31)
[2022-05-12] MEDS: polyethylene glycol 3350 Pkt 17 gm 8.5 GM PO (09:31)
[2022-05-12] MEDS: ferrous sulfate EC 325 mg Tablet PO ×2 (09:31→17:44)
[2022-05-12] MEDS: metoprolol succinate ER (24 HR) 25 mg Tablet PO (09:32)
--- NOTE | 2022-05-12 09:33 | PM.PN ---
Subjective Subjective: Patient seen and examined. Comfortable Vitals/I&O/Wt Last Vital Signs Temp 98.9 F 05/12/22 08:00 Pulse 68 05/12/22 08:00 Resp 16 05/12/22 08:00 BP 126/74 05/12/22 08:00 Pulse Ox 97 05/12/22 08:00 O2 Del Method 05/12/22 08:00 O2 Flow Rate 3 05/12/22 07:59 FiO2 3 05/10/22 07:57 05/11/22 05/12/22 05/12/22 22:59 06:59 14:59 Intake Total 882.5 / 1382.5 50 / 1432.5 Balance 882.5 / 1382.5 50 / 1432.5 Weight last 48 hrs Weight 95 lb 8 oz Weight 95 lb 12.8 oz Physical Exam Narrative: Gen: NAD Abd: S, NT, ND, dressing c/d/i Data 05/11/22 05:17 05/11/22 05:17 Micro: Microbiology 05/08/22 13:20 Urine Culture - Final Urine,Clean Catch Klebsiella oxytoca esbl 05/08/22 22:33 Gram Stain - Final Sputum - Expectorated Sputum Sputum Culture - Final A&P Assessment and plan (1) Dysphagia: (2) Zenker's diverticulum: Plan NPO Okay to use PEG Medical management per primary Attestations Medical Necessity Statement*: per primary Coding Level of Care Code Acute Code for g Fwd Diagnoses Dysphagia R13.10 Zenker's diverticulum K22.5
--- NOTE | 2022-05-12 13:32 | PC.NUTR ---
MD Consult Received today for TF recommendations. Per yesterday's assessment, recommend Jevity 1.2 or similar product beginning with 10 mls/hr and increasing 10 mls Q8H as tolerated until a goal rate of 40 mls/hr is reached with fresh water flushes 80 mls Q4H or per MD discretion. This will provide 1152 kcals or 84% Pt's estimated calorie needs, 53 grams protein or 80% Pt's estimated protein needs and 775 mls+480 mls flushes or 92% Pt's estimated fluid needs. Will follow up on 05/14.
--- NOTE | 2022-05-12 15:36 | P.PN_ITS ---
Subjective Subjective: No acute events overnight. Patient underwent feeding tube placement yesterday. Tolerated procedure well. Has remained hemodynamically stable. On examination saturating more than 95% on 3 L. As per surgeon on placement of feeding tube he found out patient had multiple pills stuck at Zenker's diverticulum. Vitals/I&O/Wt Last Vital Signs Temp 98.9 F 05/12/22 12:00 Pulse 72 05/12/22 14:42 Resp 18 05/12/22 14:00 BP 135/70 05/12/22 12:00 Pulse Ox 98 05/12/22 14:00 O2 Del Method 05/12/22 14:00 O2 Flow Rate 3 05/12/22 14:00 FiO2 3 05/10/22 07:57 05/12/22 05/12/22 05/12/22 06:59 14:59 22:59 Intake Total 50 / 1432.5 50 / 50 Balance 50 / 1432.5 50 / 50 Weight last 48 hrs Weight 43.318 kg Weight 43.454 kg Physical Exam Narrative: General: No acute distress, on nasal cannula, AAO x2-3, slow to respond, slightly confused HEENT: PERRLA, pupils bilaterally equal and reactive Chest:Bronchial breath sounds b/l , coarse crackles present all over the lung logan, conducted sounds present CVS: S1-S2 regular, no murmurs, no tachycardia, no gallops, no rubs Abdomen: Soft, nontender, no organomegaly, bowel sounds present, morbidly obese Neuro: No focal deficits, no facial deformity, AO x3, power 5/5 in all limbs Data 05/11/22 05:17 05/11/22 05:17 Micro: Microbiology 05/08/22 13:20 Urine Culture - Final Urine,Clean Catch Klebsiella oxytoca esbl 05/08/22 22:33 Gram Stain - Final Sputum - Expectorated Sputum Sputum Culture - Final A&P Assessment and plan (1) Acute respiratory failure with hypoxia: Insetting of coronavirus not COVID-19, pneumonia with high concerns for aspiration pneumonia. CT done in the ER concerning for hiatal hernia and diverticulum. Continue NPO. Modified barium swallow evaluation once patient is more awake. Speech evaluation. Urine Legionella, bacterial antigen negative. Sputum culture, MRSA swab pending beta blood cultures so far negative. Chest rest. Continue with Zosyn. MRSA negative so vancomycin was discontinued. DuoNebs every 6 hours, budesonide twice daily. Oxygen supplementation keeping saturation over 90%. (2) Aspiration pneumonia: High concern for aspiration and patient especially given her mentation secondary to cerebral palsy and setting of mild dementia along with large esophageal hiatal hernia with partial intrathoracic stomach and air-filled diverticulum in the lower neck eccentric to the right. During feeding tube placement found to have multiple pill stuck in Zenker's diverticulum. Continue strict NPO. Patient will be on high aspiration risk with any consistency of diet. Restart nutrition through feeding tube. Qualifiers: Aspiration pneumonia type: due to regurgitated food Laterality: bilateral (3) Urinary tract infection due to ESBL Klebsiella: Urine culture appreciated. Patient not of good historian hence cannot tell us about dysuria. Urine culture consistent with Klebsiella ESBL sensitive to Zosyn Continue with Zosyn. (4) Encounter for feeding tube placement: (5) Hiatal hernia: (6) Zenker's diverticulum: (7) Dysphagia: (8) Hypernatremia: (9) Hypokalemia: (10) SIRS (systemic inflammatory response syndrome): (11) Cerebral palsy: (12) Coronavirus infection: Plan Continue other chronic medication including baclofen, citalopram, donepezil, Seroquel. Analgesia: Tylenol as needed Glycemic control: Not needed Nutrition: N.p.o. Speech therapy evaluation. CODE STATUS: Discussed in detail with patient's next of kin/sister Ms. Cox over the phone. We discussed given her baseline poor functional capacity secondary to cerebral palsy in setting of dementia now. After the sister patient would not have wanted any kind of heroic measures in case if her heart stops. She would not want to have CPR or put on mechanical ventilation. CODE STATUS changed to DNR/DNI. Sister does think that she would be okay with getting a feeding tube if needed to maintain her nutrition. We did discuss that the feeding tube will be for long-term given her risk of aspiration even at baseline given her cerebral palsy. PUD prophylaxis: Famotidine DVT prophylaxis: Heparin 5000 every 8 hourly Discharge planning: Home with caregiver once medically stable. Patient will need to go back [facility] Patient would be better with continuous feeding rather than bolus feedings at that would put her at a lower risk of aspiration given extensive hiatal hernia and Zenker's diverticulum. Continue care at [facility] floor. Plan for the day: Start the feeding through feeding tube. Start at 10 cc/h increase 10 cc every 4 hours to reach goal as per dietitian. Free water flushes 250 cc every 6 hours. Strict NPO. Found to have multiple pill stuck at his ankle diverticulum. Zenker diverticulum appreciated on CT neck. Repeat potassium with 40 mEq every hour 3 doses. Stop IV fluids. Continue Zosyn to finish a 7-day course which will treat both for ESBL UTI and aspiration pneumonia. MRSA negative vancomycin stopped. This documentation was created by [employer] physical science professor software. Every effort was made to ensure accuracy of physical science professor. Any obvious errors or omissions should be clarified with the author of the document. Attestations Medical Necessity Statement*: Requires further hospitalization for management of hypoxia in setting of aspiration pneumonia and coronavirus infection, ESBL UTI, post feeding tube placement versus discharge planning discharge. and Moderate Time for a total of 40 minutes, includes reviewing past or interval history, examining/interviewing patient, placing orders, counseling patient/family/other support, updating patient/family/other support, discussing plan of care with staff, communicating with other healthcare providers, documenting encounter and coordinating care Diagnoses Acute respiratory failure with hypoxia J96.01 Aspiration pneumonia J69.0 Aspiration pneumonia type: due to regurgitated food Laterality: bilateral Urinary tract infection due to ESBL Klebsiella N39.0; B96.89 Encounter for feeding tube placement Z46.59 Hiatal hernia K44.9 Zenker's diverticulum K22.5 Dysphagia R13.10 Hypernatremia E87.0 Hypokalemia E87.6 SIRS (systemic inflammatory response syndrome) R65.10 Cerebral palsy G80.9 Coronavirus infection B34.2
[2022-05-12] MEDS: potassium chloride oral liq 20 mEq/15 mL UDC 40 MEQ PO ×3 (16:47→19:12)
[2022-05-12 17:18] LABS: Glucose Point of Care 110 mg/dL (70-110)
[2022-05-12 20:36] LABS: Anion Gap 11.7 (5-19); Blood Urea Nitrogen 4 mg/dL (8-23); Calcium 10.5 mg/dL (8.5-10.5); Carbon Dioxide 26 mmol/L (22-29); Chloride 117 mmol/L (98-107); Creatinine Clr Calc Pharmacy 43.4684; Glucose 132 mg/dL (65-115); Osmolality Calculated 307 mOsm/kg (285-295); Potassium 5.7 mmol/L (3.5-5.1); Sodium 149 mmol/L (136-145)
[2022-05-12] MEDS: baclofen 10 mg Tablet 5 MG PO (21:05)
[2022-05-12] MEDS: donepezil 5 MG Tablet 10 MG PO (21:06)
[2022-05-12] MEDS: quetiapine 25 mg Tablet PO (21:07)
[2022-05-12] MEDS: insulin regular-human 10 UNIT in SYRINGE 1 EACH IVP (23:37)
[2022-05-12] MEDS: calcium gluconate 0.9% NaCL 1 GM/50 ML PREMIX IV (23:38)
[2022-05-12] MEDS: dextrose 5%-sod chloride 0.45% 1,000 ML 30 ML IV (23:51)
[2022-05-12 23:58] LABS: Glucose Point of Care 114 mg/dL (70-110)
[2022-05-13] VITALS (11 sets, daily range): BP systolic 125–147; BP diastolic 68–87; PULSE 81–101; RESP 18–24; TEMP 36.9–37.3; O2SAT 92–99
[2022-05-13] MEDS: heparin 5,000 unit/mL INJ 1 mL 5000 UNIT SUBCUT ×3 (01:05→17:54)
[2022-05-13] MEDS: ipratropium-albuterol 3 mL Neb INHALATION ×4 (01:57→20:27)
[2022-05-13 05:05] LABS: Alanine Aminotransferase 10 U/L (0-33); Albumin Level 3.1 g/dL (3.5-5.2); Alkaline Phosphatase 77 U/L (35-105); Anion Gap 12.1 (5-19); Aspartate Amino Transferase 12 U/L (0-32); Blood Urea Nitrogen 4 mg/dL (8-23); Calcium 10.6 mg/dL (8.5-10.5); Carbon Dioxide 24 mmol/L (22-29); Chloride 116 mmol/L (98-107); Creatinine Clr Calc Pharmacy 43.4684; Glucose 146 mg/dL (65-115); Osmolality Calculated 306 mOsm/kg (285-295); Potassium 4.1 mmol/L (3.5-5.1); Sodium 148 mmol/L (136-145); Total Bilirubin 0.3 mg/dL (0.15-1.2); Total Protein 6.1 g/dL (6.6-8.7)
[2022-05-13] MEDS: piperacillin-tazobactam 3.375 GM in sodium chloride 0.9% (plus) 50 ML IV ×3 (05:16→20:19)
[2022-05-13] MEDS: famotidine 20 mg/2 mL INJ IVP ×2 (05:17→17:54)
[2022-05-13] MEDS: budesonide 0.5 mg/2 mL Neb INHALATION ×2 (07:31→20:27)
[2022-05-13] MEDS: citalopram 20 mg Tablet 10 MG PO (08:09)
[2022-05-13] MEDS: metoprolol succinate ER (24 HR) 25 mg Tablet PO (08:09)
[2022-05-13] MEDS: ferrous sulfate EC 325 mg Tablet PO ×2 (08:09→17:54)
--- NOTE | 2022-05-13 10:24 | PC.SOCIAL ---
IMM IMM updated, copy given to patient and copy added to chart.
[2022-05-13 12:14] LABS: Basophils % 0.2 %; Eosinophils # 0.1 10^3/uL (0.0-0.8); Hematocrit 32.3 % (37.0-47.0); Hemoglobin 10.5 g/dL (11.5-15.3); Lymphocytes # 1.4 10^3/uL (0.8-4.8); Lymphocytes % 13.8 %; Mean Corpuscular HGB Conc 32.5 g/dL (30.0-36.0); Mean Corpuscular Hemoglobin 31.6 pg (28.0-34.0); Mean Corpuscular Volume 97.3 fl (81-99); Mean Platelet Volume 9.3 fL (7.4-10.4); Monocytes # 0.9 10^3/uL (0.2-0.9); Monocytes % 8.6 %; Neutrophils % 75.4 %; Nucleated Red Blood Cells % 0 %; Platelet Count 333 10^3/cmm (130-400); Red Blood Count 3.32 10^6/uL (4.1-5.3); Red Cell Distribution Width 14.6 % (12.1-15.1); White Blood Count 9.8 10^3/uL (4.0-10.0)
[2022-05-13 12:46] LABS: Blood Urea Nitrogen 6 mg/dL (8-23); Calcium 10.3 mg/dL (8.5-10.5); Carbon Dioxide 23 mmol/L (22-29); Chloride 113 mmol/L (98-107); Creatinine Clr Calc Pharmacy 52.2673; Glucose 153 mg/dL (65-115); Osmolality Calculated 303 mOsm/kg (285-295); Sodium 146 mmol/L (136-145)
[2022-05-13 13:06] LABS: Anion Gap 14.5 (5-19); Potassium 4.5 mmol/L (3.5-5.1)
--- NOTE | 2022-05-13 13:21 | PM.PN ---
Subjective Subjective: Patient seen and examined. Comfortable. Tolerating tube feeds at 40 Vitals/I&O/Wt Last Vital Signs Temp 98.4 F 05/13/22 04:00 Pulse 92 05/13/22 07:42 Resp 18 05/13/22 07:31 BP 147/87 05/13/22 04:00 Pulse Ox 96 05/13/22 07:31 O2 Del Method 05/13/22 08:20 O2 Flow Rate 4 05/13/22 07:31 FiO2 3 05/10/22 07:57 05/12/22 05/13/22 05/13/22 22:59 06:59 14:59 Intake Total 1070 / 1120 428.10 / 1548.10 480 / 480 Balance 1070 / 1120 428.10 / 1548.10 480 / 480 Weight last 48 hrs Weight 106 lb 3 oz Weight 95 lb 8 oz Physical Exam Narrative: Gen: NAD Abd: S, NT, ND, no erythema or exudate around the PEG Data 05/13/22 12:06 05/13/22 12:06 Micro: Microbiology 05/08/22 11:13 Blood Culture - Final Blood NO GROWTH AFTER 5 DAYS 05/08/22 11:29 Blood Culture - Final Blood NO GROWTH AFTER 5 DAYS A&P Assessment and plan (1) Dysphagia: (2) Zenker's diverticulum: Plan NPO Okay to use PEG Tube feeding per dietary Medical management per primary General surgery will sign off. Please reconsult if needed Attestations Medical Necessity Statement*: Per primary Coding Level of Care Code Acute Code for Chg Fwd Diagnoses Dysphagia R13.10 Zenker's diverticulum K22.5
--- NOTE | 2022-05-13 13:32 | PC.SOCIAL ---
IMM IMM updated, copy given to patient and copy added to chart.
--- NOTE | 2022-05-13 14:16 | P.PN_ITS ---
Subjective Subjective: No acute events overnight. Patient has remained hemodynamically stable and afebrile. Continues to remain around 2 to 3 L of oxygen supplementation to maintain saturation over 92%. Again on examination today patient is sleeping but is arousable. Family at bedside. Yesterday evening on blood work she was found to have persistent hypernatremia and hyperkalemia for which she received IV calcium and D50 and 10 units of insulin. Potassium is within normal limits today. Sodium seems to be improving. Vitals/I&O/Wt Last Vital Signs Temp 98.4 F 05/13/22 04:00 Pulse 92 05/13/22 07:42 Resp 18 05/13/22 07:31 BP 147/87 05/13/22 04:00 Pulse Ox 96 05/13/22 07:31 O2 Del Method 05/13/22 13:34 O2 Flow Rate 3 05/13/22 13:34 FiO2 3 05/10/22 07:57 05/12/22 05/13/22 05/13/22 22:59 06:59 14:59 Intake Total 1070 / 1120 428.10 / 1548.10 970 / 970 Balance 1070 / 1120 428.10 / 1548.10 970 / 970 Weight last 48 hrs Weight 48.166 kg Weight 43.318 kg Physical Exam Narrative: General: No acute distress, on nasal cannula, AAO x2-3, slow to respond, slightly confused HEENT: PERRLA, pupils bilaterally equal and reactive Chest:Bronchial breath sounds b/l , coarse crackles present all over the lung logan, conducted sounds present CVS: S1-S2 regular, no murmurs, no tachycardia, no gallops, no rubs Abdomen: Soft, nontender, no organomegaly, bowel sounds present, morbidly obese Neuro: No focal deficits, no facial deformity, AO x3, power 5/5 in all limbs Data 05/13/22 12:06 05/13/22 12:06 Micro: Microbiology 05/08/22 11:13 Blood Culture - Final Blood NO GROWTH AFTER 5 DAYS 05/08/22 11:29 Blood Culture - Final Blood NO GROWTH AFTER 5 DAYS A&P Assessment and plan (1) Acute encephalopathy: Most likely worsening of baseline mentation in setting of cerebral palsy secondary to acute illness. Coronavirus, aspiration pneumonia along with hypernatremia and most likely polypharmacy has finally she is able to absorb her medications properly as given through the PEG tube. On EGD was found to have multiple pills stuck in Zenker's diverticulum. (2) Acute respiratory failure with hypoxia: Insetting of coronavirus not COVID-19, pneumonia with high concerns for aspiration pneumonia. CT done in the ER concerning for hiatal hernia and diverticulum. Post feeding tube placement. Urine Legionella, bacterial antigen negative. Sputum culture, MRSA swab pending beta blood cultures so far negative. Chest vest. Continue with Zosyn. MRSA negative so vancomycin was discontinued. DuoNebs every 6 hours, budesonide twice daily. Oxygen supplementation keeping saturation over 90%. (3) Aspiration pneumonia: High concern for aspiration and patient especially given her mentation secondary to cerebral palsy and setting of mild dementia along with large esophageal hiatal hernia with partial intrathoracic stomach and air-filled diverticulum in the lower neck eccentric to the right. During feeding tube placement found to have multiple pill stuck in Zenker's dive rticulum. Continue strict NPO. Patient will be on high aspiration risk with any consistency of diet. Restart nutrition through feeding tube. Qualifiers: Aspiration pneumonia type: due to regurgitated food Laterality: bilateral (4) Urinary tract infection due to ESBL Klebsiella: Urine culture appreciated. Patient not of good historian hence cannot tell us about dysuria. Urine culture consistent with Klebsiella ESBL sensitive to Zosyn Continue with Zosyn. (5) Encounter for feeding tube placement: Patient has reached goal of feeding tube at 40 cc/h. Tolerating well. Will need to discharge with tube feeds through pump regularly at shelter as well as that will put her at a lower risk of aspiration rather than bolus feeds. Head of bed elevated. Aspiration precautions. (6) Hiatal hernia: (7) Zenker's diverticulum: (8) Dysphagia: (9) Hypernatremia: (10) Hypokalemia: (11) SIRS (systemic inflammatory response syndrome): (12) Cerebral palsy: (13) Coronavirus infection: Plan Continue other chronic medication including baclofen, citalopram, donepezil, Seroquel. Analgesia: Tylenol as needed Glycemic control: Not needed Nutrition: N.p.o. Speech therapy evaluation. CODE STATUS: Discussed in detail with patient's next of kin/sister Ms. Cox over the phone. We discussed given her baseline poor functional capacity secondary to cerebral palsy in setting of dementia now. After the sister patient would not have wanted any kind of heroic measures in case if her heart stops. She would not want to have CPR or put on mechanical ventilation. CODE STATUS changed to DNR/DNI. Sister does think that she would be okay with getting a feeding tube if needed to maintain her nutrition. We did discuss that the feeding tube will be for long-term given her risk of aspiration even at baseline given her cerebral palsy. PUD prophylaxis: Famotidine DVT prophylaxis: Heparin 5000 every 8 hourly Discharge planning: Home with caregiver once medically stable. Patient will need to go back once feeding through feeding tube is available at the shelter. Patient would be better with continuous feeding rather than bolus feedings at that would put her at a lower risk of aspiration given extensive hiatal hernia and Zenker's diverticulum. Continue care at [facility] floor. Plan for the day: Continue with aspiration precautions. Continue with tube feeds at goal 40 cc/h. Monitor sodium levels. Increase IV fluids to 75 cc/h. Free water flushes to be increased at 250 cc every 4 hourly. Repeat BMP in evening. Continue with home dose of donepezil and Celexa. Hold off on Seroquel for now. This documentation was created by [employer] licensed nuclear control room operator software. Every effort was made to ensure accuracy of licensed nuclear control room operator. Any obvious errors or omissions should be clarified with the author of the document. Attestations Medical Necessity Statement*: Requires further hospitalization for management of aspiration pneumonia, post feeding tube placement, hypernatremia, ESBL UTI leading to altered mental status in setting of baseline cerebral palsy while safe discharge planning and outpatient tube feedings are set up. Coding Level of Care Code 87230 Moderate MDM includes number and complexity of problems actively addressed during encounter, amount and/or complexity of data reviewed/ordered and described risk of complication, morbidity or mortality of management as doc umented and Moderate Time for a total of 50 minutes, includes reviewing past or interval history, examining/interviewing patient, placing orders, counseling patient/family/other support, updating patient/family/other support, discussing plan of care with staff, communicating with other healthcare providers, documenting encounter and coordinating care Diagnoses Acute encephalopathy G93.40 Acute respiratory failure with hypoxia J96.01 Aspiration pneumonia J69.0 Aspiration pneumonia type: due to regurgitated food Laterality: bilateral Urinary tract infection due to ESBL Klebsiella N39.0; B96.89 Encounter for feeding tube placement Z46.59 Hiatal hernia K44.9 Zenker's diverticulum K22.5 Dysphagia R13.10 Hypernatremia E87.0 Hypokalemia E87.6 SIRS (systemic inflammatory response syndrome) R65.10 Cerebral palsy G80.9 Coronavirus infection B34.2
[2022-05-13] MEDS: donepezil 5 MG Tablet 10 MG PO (20:17)
[2022-05-13] MEDS: baclofen 10 mg Tablet 5 MG PO (20:18)
[2022-05-13 20:58] LABS: Sodium 143 mmol/L (136-145)
[2022-05-14] VITALS (14 sets, daily range): BP systolic 122–151; BP diastolic 70–81; PULSE 74–93; RESP 15–24; TEMP 37.1–37.4; O2SAT 90–99
[2022-05-14] MEDS: ipratropium-albuterol 3 mL Neb INHALATION ×4 (02:07→21:53)
[2022-05-14] MEDS: heparin 5,000 unit/mL INJ 1 mL 5000 UNIT SUBCUT ×3 (02:16→17:38)
[2022-05-14 04:57] LABS: Basophils % 0.2 %; Eosinophils # 0.2 10^3/uL (0.0-0.8); Eosinophils % 2.7 %; Hematocrit 31.9 % (37.0-47.0); Hemoglobin 10.3 g/dL (11.5-15.3); Lymphocytes # 1.6 10^3/uL (0.8-4.8); Lymphocytes % 19.7 %; Mean Corpuscular HGB Conc 32.3 g/dL (30.0-36.0); Mean Corpuscular Hemoglobin 31.3 pg (28.0-34.0); Mean Platelet Volume 9.1 fL (7.4-10.4); Monocytes # 0.7 10^3/uL (0.2-0.9); Monocytes % 8.8 %; Neutrophils # 5.58 10^3/uL (1.8-7.7); Neutrophils % 67.5 %; Nucleated Red Blood Cells % 0 %; Platelet Count 293 10^3/cmm (130-400); Red Blood Count 3.29 10^6/uL (4.1-5.3); Red Cell Distribution Width 14.2 % (12.1-15.1); White Blood Count 8.3 10^3/uL (4.0-10.0)
[2022-05-14] MEDS: famotidine 20 mg/2 mL INJ IVP ×2 (05:08→17:38)
[2022-05-14] MEDS: piperacillin-tazobactam 3.375 GM in sodium chloride 0.9% (plus) 50 ML IV ×3 (05:08→20:09)
[2022-05-14 05:16] LABS: Alanine Aminotransferase 9 U/L (0-33); Albumin Level 2.9 g/dL (3.5-5.2); Alkaline Phosphatase 76 U/L (35-105); Anion Gap 11.8 (5-19); Aspartate Amino Transferase 13 U/L (0-32); Blood Urea Nitrogen 4 mg/dL (8-23); Calcium 10.2 mg/dL (8.5-10.5); Carbon Dioxide 25 mmol/L (22-29); Chloride 107 mmol/L (98-107); Creatinine Clr Calc Pharmacy 52.2673; Glucose 125 mg/dL (65-115); Osmolality Calculated 288 mOsm/kg (285-295); Potassium 3.8 mmol/L (3.5-5.1); Sodium 140 mmol/L (136-145); Total Bilirubin 0.2 mg/dL (0.15-1.2); Total Protein 5.9 g/dL (6.6-8.7)
[2022-05-14] MEDS: polyethylene glycol 3350 Pkt 17 gm 8.5 GM PO (08:22)
[2022-05-14] MEDS: citalopram 20 mg Tablet 10 MG PO (08:22)
[2022-05-14] MEDS: ferrous sulfate EC 325 mg Tablet PO ×2 (08:22→17:39)
[2022-05-14] MEDS: metoprolol succinate ER (24 HR) 25 mg Tablet PO (08:22)
[2022-05-14] MEDS: budesonide 0.5 mg/2 mL Neb INHALATION ×2 (09:45→21:53)
--- NOTE | 2022-05-14 12:41 | P.PN_ITS ---
Subjective Subjective: Seen this morning. Patient asleep but arousable. Responds to her name however unable to answer questions. Sister present at bedside along with [employer] personnel. Patient gurgling on her secretions at this time. Quite a bit of oral airway secretions noted. Have asked respiratory therapist to suction. PEG feeds are going. Vitals/I&O/Wt Last Vital Signs Temp 98.9 F 05/14/22 08:06 Pulse 74 05/14/22 09:45 Resp 20 H 05/14/22 09:45 BP 134/72 05/14/22 08:06 Pulse Ox 97 05/14/22 09:45 O2 Del Method 05/14/22 09:45 O2 Flow Rate 4 05/14/22 09:45 FiO2 4 05/13/22 14:05 05/13/22 05/14/22 05/14/22 22:59 06:59 14:59 Intake Total 90 / 1060 550 / 1610 50 / 50 Output Total 250 / 250 Balance -160 / 810 550 / 1360 50 / 50 Weight last 48 hrs Weight 46.675 kg Weight 48.166 kg Physical Exam Narrative: General: No acute distress, on nasal cannula, AAO x1, slow to respond, confused. Does open her eyes. Unable to understand her. HEENT: pupils bilaterally equal and reactive Chest:Bronchial breath sounds b/l , coarse crackles present all over the lung logan, conducted sounds present CVS: S1-S2 regular, no murmurs, no tachycardia, no gallops, no rubs Abdomen: Soft, nontender, no organomegaly, bowel sounds present, morbidly obese Neuro: Moves all 4 extremities. Data 05/14/22 04:41 05/14/22 04:41 Micro: Microbiology 05/08/22 11:13 Blood Culture - Final Blood NO GROWTH AFTER 5 DAYS 05/08/22 11:29 Blood Culture - Final Blood NO GROWTH AFTER 5 DAYS A&P Assessment and plan (1) Acute encephalopathy: (2) Encounter for feeding tube placement: (3) Urinary tract infection due to ESBL Klebsiella: (4) Hypernatremia: (5) Dysphagia: (6) Zenker's diverticulum: (7) Hiatal hernia: (8) Aspiration pneumonia: Qualifiers: Aspiration pneumonia type: due to regurgitated food Laterality: bilate ral (9) Cerebral palsy: (10) Acute UTI: Plan #Acute encephalopathy #Aspiration pneumonia #UTI #Hiatal hernia #Zenker's diverticulum #Dysphagia #Hyponatremia #Cerebral palsy #Recent COVID infection #Dementia ? Patient has worsening of baseline mentation in setting of cerebral palsy secondary to most likely acute illness. COVID, aspiration pneumonia along with hyponatremia and polypharmacy could be potential causes. Patient did go for an EGD was found to have a Zenker's diverticulum and found multiple pills stuck there. She has dysphagia. Strictly made n.p.o. and PEG tube placed. Continuous feeds being given through the PEG at this time. ? Patient is at high risk of aspiration with any consistency of diet secondary to hiatal hernia and Zenker's diverticulum. ? Urine culture appreciated. Klebsiella ESBL sensitive to Zosyn identified. Continue that for now. ? Continue tube feeding at 40 cc/h. Patient will need to continue tube feeds at long term versus residential. Disposition is pending at this time. ? I did discuss with patient's sister that patient is at high risk of aspiration and may require aspiration pneumonia repeatedly which may cause her to deteriorate down the road. Patient does have quite a bit of oral airway secretions. We will be suctioning those today and providing supportive care. -We will order scopolamine patch as well. DNR/DNI Continue aspiration precautions Sodium levels have normalized. Continue free water flushes to 50 cc every 4 hours. Continue IV fluids at 75 cc/h. ? Continue donepezil and Celexa. Hold off on Seroquel. Heparin 5000 subcu twice daily for DVT prophylaxis. Prognosis is poor. Attestations Medical Necessity Statement*: Requires further hospitalization for management of aspiration pneumonia, post feeding tube placement, hypernatremia, ESBL UTI leading to altered mental status in setting of baseline cerebral palsy while safe discharge planning and outpatient tube feedings are set up. and Moderate Time for a total of 30 minutes, includes reviewing past or interval history, examining/interviewing patient, placing orders, counseling patient/family/other support, updating patient/family/other support, discussing plan of care with staff, documenting encounter and coordinating care Diagnoses Acute encephalopathy G93.40 Encounter for feeding tube placement Z46.59 Urinary tract infection due to ESBL Klebsiella N39.0; B96.89 Hypernatremia E87.0 Dysphagia R13.10 Zenker's diverticulum K22.5 Hiatal hernia K44.9 Aspiration pneumonia J69.0 Aspiration pneumonia type: due to regurgitated food Laterality: bilateral Cerebral palsy G80.9 Acute UTI N39.0 Time Spent (min) 30
[2022-05-14] MEDS: scopolamine 1.5 Patch 1 PATCH TRANSDERMA (13:35)
[2022-05-14] MEDS: donepezil 5 MG Tablet 10 MG PO (20:09)
[2022-05-14] MEDS: baclofen 10 mg Tablet 5 MG PO (20:10)
[2022-05-15] VITALS (14 sets, daily range): BP systolic 103–142; BP diastolic 47–80; PULSE 78–99; RESP 15–22; TEMP 36.8–37.6; O2SAT 90–98
[2022-05-15] MEDS: heparin 5,000 unit/mL INJ 1 mL 5000 UNIT SUBCUT ×3 (01:06→21:00)
[2022-05-15] MEDS: ipratropium-albuterol 3 mL Neb INHALATION ×4 (03:11→21:17)
[2022-05-15] MEDS: piperacillin-tazobactam 3.375 GM in sodium chloride 0.9% (plus) 50 ML IV ×3 (04:57→20:49)
[2022-05-15] MEDS: famotidine 20 mg/2 mL INJ IVP ×2 (05:01→17:27)
[2022-05-15 05:59] LABS: Alanine Aminotransferase 10 U/L (0-33); Alkaline Phosphatase 77 U/L (35-105); Anion Gap 14.8 (5-19); Aspartate Amino Transferase 14 U/L (0-32); Blood Urea Nitrogen 6 mg/dL (8-23); Carbon Dioxide 26 mmol/L (22-29); Chloride 102 mmol/L (98-107); Glucose 127 mg/dL (65-115); Osmolality Calculated 287 mOsm/kg (285-295); Phosphorus 3.2 mg/dL (2.5-4.5); Potassium 3.8 mmol/L (3.5-5.1); Sodium 139 mmol/L (136-145); Total Bilirubin 0.2 mg/dL (0.15-1.2)
[2022-05-15] MEDS: budesonide 0.5 mg/2 mL Neb INHALATION ×2 (08:51→21:18)
[2022-05-15] MEDS: metoprolol succinate ER (24 HR) 25 mg Tablet PO (09:59)
[2022-05-15] MEDS: ferrous sulfate EC 325 mg Tablet PO ×2 (09:59→17:27)
[2022-05-15] MEDS: citalopram 20 mg Tablet 10 MG PO (09:59)
--- NOTE | 2022-05-15 12:06 | P.PN_ITS ---
Subjective Subjective: seen this am no acute events ovenight upper airways secretions improved pt laying in bed asleep did wake up earlier for residential staff member Vitals/I&O/Wt Last Vital Signs Temp 98.7 F 05/15/22 12:00 Pulse 78 05/15/22 12:00 Resp 16 05/15/22 12:00 BP 103/47 05/15/22 12:00 Pulse Ox 96 05/15/22 12:00 O2 Del Method 05/15/22 12:00 O2 Flow Rate 4 05/15/22 08:51 FiO2 4 05/13/22 14:05 05/14/22 05/15/22 05/15/22 22:59 06:59 14:59 Intake Total 50 / 100 550 / 650 50 / 50 Balance 50 / 100 550 / 650 50 / 50 Weight last 48 hrs Weight 46.38 kg Weight 46.675 kg Physical Exam Narrative: General: No acute distress, on nasal cannula, AAO x1, slow to respond, confused. Does open her eyes. Unable to understand her. HEENT: pupils bilaterally equal and reactive Chest:Bronchial breath sounds b/l , coarse crackles present all over the lung f ields, conducted sounds present CVS: S1-S2 regular, no murmurs, no tachycardia, no gallops, no rubs Abdomen: Soft, nontender, no organomegaly, bowel sounds present, morbidly obese Neuro: Moves all 4 extremities. Data 05/14/22 04:41 05/15/22 04:43 A&P Assessment and plan (1) Acute encephalopathy: (2) Encounter for feeding tube placement: (3) Urinary tract infection due to ESBL Klebsiella: (4) Hypernatremia: (5) Dysphagia: (6) Zenker's diverticulum: (7) Hiatal hernia: (8) Aspiration pneumonia: Qualifiers: Aspiration pneumonia type: due to regurgitated food Laterality: bilateral (9) Cerebral palsy: (10) Acute UTI: Plan #Acute encephalopathy #Aspiration pneumonia #UTI #Hiatal hernia #Zenker's diverticulum #Dysphagia #Hyponatremia #Cerebral palsy #Recent COVID infection #Dementia ? Patient has worsening of baseline mentation in setting of cerebral palsy secondary to most likely acute illness. COVID, aspiration pneumonia along with hyponatremia and polypharmacy could be potential causes. Patient did go for an EGD was found to have a Zenker's diverticulum and found multiple pills stuck there. She has dysphagia. Strictly made n.p.o. and PEG tube placed. Continuous feeds being given through the PEG at this time. ? Patient is at high risk of aspiration with any consistency of diet secondary to hiatal hernia and Zenker's diverticulum. ? Urine culture appreciated. Klebsiella ESBL sensitive to Zosyn identified. Continue that for now. ? Continue tube feeding at 40 cc/h. Patient will need to continue tube feeds at residential versus [facility]. Disposition is pending at this time. ? Continue scopolamine patch - Will need to complete 7 days of zosyn for ESBL UTI - Zosyn will cover for aspiration pnuemonia as well - Check chest xr in AM - Requiring 4L NC. DNR/DNI Continue aspiration precautions Sodium levels have normalized. Continue free water flushes to 50 cc every 4 hours. Stop IV fluids ? Continue donepezil and Celexa. Hold off on Seroquel. Heparin 5000 subcu twice daily for DVT prophylaxis. Prognosis is poor. Attestations Medical Necessity Statement*: Requires further hospitalization for management of aspiration pneumonia, post feeding tube placement, hypernatremia, ESBL UTI leading to altered mental status in setting of baseline cerebral palsy while safe discharge planning and outpatient tube feedings are set up. Coding Level of Care Code Acute Code for Chg Fwd Diagnoses Acute encephalopathy G93.40 Encounter for feeding tube placement Z46.59 Urinary tract infection due to ESBL Klebsiella N39.0; B96.89 Hypernatremia E87.0 Dysphagia R13.10 Zenker's diverticulum K22.5 Hiatal hernia K44.9 Aspiration pneumonia J69.0 Aspiration pneumonia type: due to regurgitated food Laterality: bilateral Cerebral palsy G80.9 Acute UTI N39.0
--- NOTE | 2022-05-15 12:50 | PC.SOCIAL ---
IMM Updated Updated pt's sister Brooke, on IMM. No questions voiced. Provided pt a copy. Initialed, dated, & timed copy in chart.
[2022-05-15] MEDS: donepezil 5 MG Tablet 10 MG PO (20:49)
[2022-05-15] MEDS: baclofen 10 mg Tablet 5 MG PO (20:49)
[2022-05-16] VITALS (15 sets, daily range): BP systolic 112–155; BP diastolic 56–83; PULSE 74–101; RESP 16–22; TEMP 36.6–37; O2SAT 90–98
[2022-05-16] MEDS: ipratropium-albuterol 3 mL Neb INHALATION ×4 (02:24→22:03)
[2022-05-16] MEDS: piperacillin-tazobactam 3.375 GM in sodium chloride 0.9% (plus) 50 ML IV ×3 (05:18→20:06)
[2022-05-16] MEDS: famotidine 20 mg/2 mL INJ IVP ×2 (05:18→18:02)
--- NOTE | 2022-05-16 08:00 | XRR_ITS ---
PROCEDURE INFORMATION: Exam: XR Chest Exam date and time: 05/16/2022 8:43 AM Age: 71 years old Clinical indication: Shortness of breath; Additional info: Hypoxia, for may 16Saturday TECHNIQUE: Imaging protocol: Radiologic exam of the chest. Views: 1 view. COMPARISON: CR XR chest 1V portable [id number] 05/09/2022 4:29 PM FINDINGS: Lungs: There is redistribution and indistinctness of the pulmonary vasculature, in association with haziness of the lungs and small left pleural effusion, which in the setting of cardiomegaly is consistent with pulmonary edema. Streaky and compressive bilateral atelectasis noted. Pneumonia should be excluded clinically. No pneumothorax. Pleural spaces: See Lungs finding. Heart/Mediastinum: Stable cardiomediastinal silhouette. Bones/joints: Degenerative changes of the spine seen. XR/XR chest 1V portable [id number] IMPRESSION: Imaging findings of pulmonary edema with small left pleural effusion. Pneumonia should be excluded clinically.
[2022-05-16] MEDS: budesonide 0.5 mg/2 mL Neb INHALATION ×2 (08:07→22:03)
[2022-05-16] MEDS: citalopram 20 mg Tablet 10 MG PO (09:13)
[2022-05-16] MEDS: ferrous sulfate EC 325 mg Tablet PO ×2 (09:13→18:02)
[2022-05-16] MEDS: heparin 5,000 unit/mL INJ 1 mL 5000 UNIT SUBCUT ×2 (09:14→22:46)
[2022-05-16] MEDS: metoprolol succinate ER (24 HR) 25 mg Tablet PO (09:14)
[2022-05-16] MEDS: polyethylene glycol 3350 Pkt 17 gm 8.5 GM PO (09:14)
--- NOTE | 2022-05-16 09:53 | PC.CHAP ---
Pastoral Care Encounter/Spiritual Assessment Type of Contact [] Declined stiff leg derrick operator visit [] Patient/Family/Request visit [] Outpatient visit [] Follow-up visit [] Physician referral [] Code/Alert [x] Routine visit [] Staff referral [] Actively dying [x] Patient sleeping [] Family support [] [] Out of room [] Palliative care [] [] Receiving care in room [] Pre-surgical visit [] Trauma [] Long length of stay [] ICU visit [] Other: Relational/Emotional Strength [] Patient feels connected with others/family/visitors/staff [] Distress [] Loneliness/isolation [] Abandonment Spirituality of Patient [] Person of Eden [] Attends Zoroastrian of their Eden [] Believes in Prayer [] Reads Bible or Taoist materials [] There are Spiritual issues to be addressed Acupressurist Interventions [] Prayer [] Active listening [] Non-anxious presence [] Spiritual/emotional support [] Crisis/trauma care [] Spiritual counseling [] Bereavement support [] Provided bereavement packet [] Provided Bible/devotional materials [] Provided toy/stuffed animal, coloring book to patient or family member [] Provided Communion [] Anointing/[place] [] Salvation [] Completed spiritual assessment [] Other: Impact on Illness or Injury [] Angry [] Fearful [] Anxious [] Often cries [] Exhaustion [] Unable to work [] Unable to attend sabianism [] Unable to walk/stand [] Unable to read [] Unable to drive [] Unable to eat/drink [] Unable to sleep [] Unable to be with family [] Patient intubated [] Other: Summary Pt asleep but had sitter in the room Time spent with patient 1m
--- NOTE | 2022-05-16 10:55 | USCV_ITS ---
Melany Horne Age: 71 Gender: F : 1950 Exam Date: 05/16/2022 15:35 Ordering Phys: Sisi Stapleton MD Technologist: LASHON Exam Location: [facility] [place] Indication: HEART FAILURE BP: 112 / 68 HR: 80 Rhythm: Sinus Technical Quality: Suboptimal MEASUREMENTS (Male / Female) Normal Values 2D ECHO LVOT Diameter 2.0 cm LV Ejection Fraction MOD 2C 63.6 % LV Ejection Fraction 2C AL 64.4 % LA Width 2.2 cm LA Height 3.8 cm RA Width 2.7 cm RA Height 3.5 cm DOPPLER AV Peak Velocity 147.0 cm/s LVOT Peak Velocity 92.0 cm/s AV Area Cont Eq vti 2.1 cm squared AV Area Cont Eq pk 2.0 cm squared MV Peak Velocity 90.0 cm/s MV Area PHT 3.0 cm squared Mitral E to A Ratio 0.8 MV E' Velocity 42.0 cm/s Mitral E to MV E' Ratio 8.2 Mitral E to LV E' Lateral Ratio 8.7 Mitral E to LV E' Septal Ratio 7.9 TR Peak Velocity 137.4 cm/s TR Peak Gradient 7.6 mmHg TR Mean Velocity 121.9 cm/s TR Mean Gradient 5.9 mmHg TR Velocity Time Integral 32.5 cm TV Peak E Velocity 38.0 cm/s Right Atrial Pressure 8.0 mmHg Pulmonary Artery Systolic Pressu 15.6 mmHg RV Acceleration Time 0.1 s RV Ejection Time 0.3 s RV AcT/ET 0.5 FINDINGS Left Ventricle Possibly normal LV size ejection fraction. Segmental wall motion analysis difficult because of the poor ultrasonic window Right Ventricle Appears to be of normal size ejection fraction Right Atrium Possibly of normal size Left Atrium Possibly of normal size Mitral Valve Minimally thickened anterior mitral leaflet. No other gross abnormalities noted.trace mitral valve regurgitation. Aortic Valve Thickened aortic valve. Tricuspid Valve No gross abnormalities noted.trace tricuspid valve regurgitation. Pulmonic Valve Pulmonic valve not well visualized. Pericardium Normal pericardium without effusion. Aorta Normal ascending aorta dimension. IVC The inferior vena cava appears normal. CONCLUSIONS Possibly normal LV size ejection fraction. Segmental wall motion analysis difficult because of the poor ultrasonic window. Some features of grade 1 left-ventricular diastolic dysfunction Minimally thickened anterior mitral leaflet. No other gross abnormalities noted. Trace mitral valve regurgitation. Thickened aortic valve. Trace tricuspid valve regurgitation. There is no pericardial effusion. There are no intracardiac masses. Technically difficult study because of the poor parasternal windows No similar previous studies are available for comparison Dr Mallory Pop MD [facility] (Electronically Signed) Final Date: 17 May 2022 07:59 S
[2022-05-16] MEDS: FUROsemide 10 mg/mL SDV 2mL 20 MG IVP (10:57)
--- NOTE | 2022-05-16 13:46 | P.PN_ITS ---
Subjective Subjective: seen this morning more awake today as per nursing staff sleeping however when i saw her. on oxymask chest xray showed pulmonary edema Vitals/I&O/Wt Last Vital Signs Temp 98.6 F 05/16/22 11:35 Pulse 76 05/16/22 13:13 Resp 16 05/16/22 13:08 BP 112/68 05/16/22 11:35 Pulse Ox 94 05/16/22 13:08 O2 Del Method 05/16/22 13:08 O2 Flow Rate 4 05/16/22 13:08 FiO2 4 05/13/22 14:05 05/15/22 05/16/22 05/16/22 22:59 06:59 14:59 Intake Total 470 / 520 719 / 1239 50 / 50 Balance 470 / 520 719 / 1239 50 / 50 Weight last 48 hrs Weight 46.38 kg Physical Exam Narrative: General: No acute distress, on nasal cannula, AAO x1, slow to respond, confused. Does open her eyes. HEENT: pupils bilaterally equal and reactive Chest:Bronchial breath sounds b/l , coarse crackles present all over the lung logan, conducted sounds present CVS: S1-S2 regular, no murmurs, no tachycardia, no gallops, no rubs Abdomen: Soft, nontender, no organomegaly, bowel sounds present, morbidly obese Neuro: Moves all 4 extremities. extremities; mild 1+ edema noted Data 05/14/22 04:41 05/15/22 04:43 A&P Assessment and plan (1) Acute encephalopathy: (2) Encounter for feeding tube placement: (3) Urinary tract infection due to ESBL Klebsiella: (4) Hypernatremia: (5) Dysphagia: (6) Zenker's diverticulum: (7) Hiatal hernia: (8) Aspiration pneumonia: Qualifiers: Aspiration pneumonia type: due to regurgitated food Laterality: bilateral (9) Cerebral palsy: (10) Acute UTI: Plan #Acute encephalopathy #Aspiration pneumonia #UTI #Hiatal hernia #Zenker's diverticulum #Dysphagia #Hyponatremia #Cerebral palsy #Recent COVID infection #Dementia #Pulmonary edema, ? Patient has worsening of baseline mentation in setting of cerebral palsy secondary to most likely acute illness. COVID, aspiration pneumonia along with hyponatremia and polypharmacy could be potential causes. Patient did go for an EGD was found to have a Zenker's diverticulum and found multiple pills stuck there. She has dysphagia. Strictly made n.p.o. and PEG tube placed. Continuous feeds being given through the PEG at this time. ? Patient is at high risk of aspiration with any consistency of diet secondary to hiatal hernia and Zenker's diverticulum. ? Urine culture appreciated. Klebsiella ESBL sensitive to Zosyn identified. Continue that for now. ? Continue tube feeding at 40 cc/h. Patient will need to continue tube feeds at detention versus custodial. Disposition is pending at this time. ? Continue scopolamine patch - Will need to complete 7 days of zosyn for ESBL UTI - Zosyn will cover for aspiration pnuemonia as well -CXR reviewed. Pulm edema present - Check echo - No documented hx of HF or any other cardiac issues in past - Order lasix 20 IV x 1 - Requiring 4L NC. DNR/DNI Continue aspiration precautions Sodium levels have normalized. Continue free water flushes to 50 cc every 4 hours. Stop IV fluids ? Continue donepezil and Celexa. Hold off on Seroquel. Heparin 5000 subcu twice daily for DVT prophylaxis. Attestations Medical Necessity Statement*: Requires further hospitalization for management of aspiration pneumonia, post feeding tube placement, hypernatremia, ESBL UTI leading to altered mental status in setting of baseline cerebral palsy while safe discharge planning and outpatient tube feedings are set up. Diagnoses Acute encephalopathy G93.40 Encounter for feeding tube placement Z46.59 Urinary tract infection due to ESBL Klebsiella N39.0; B96.89 Hypernatremia E87.0 Dysphagia R13.10 Zenker's diverticulum K22.5 Hiatal hernia K44.9 Aspiration pneumonia J69.0 Aspiration pneumonia type: due to regurgitated food Laterality: bilateral Cerebral palsy G80.9 Acute UTI N39.0
[2022-05-16] MEDS: donepezil 5 MG Tablet 10 MG PO (20:06)
[2022-05-16] MEDS: baclofen 10 mg Tablet 5 MG PO (20:06)
[2022-05-17] VITALS (13 sets, daily range): BP systolic 118–138; BP diastolic 72–81; PULSE 66–96; RESP 16–21; TEMP 36.6–37.6; O2SAT 94–99
[2022-05-17] MEDS: ipratropium-albuterol 3 mL Neb INHALATION ×4 (03:03→21:21)
[2022-05-17 05:17] LABS: Basophils % 0.5 %; Eosinophils # 0.3 10^3/uL (0.0-0.8); Eosinophils % 3.4 %; Hemoglobin 10.8 g/dL (11.5-15.3); Lymphocytes # 1.6 10^3/uL (0.8-4.8); Lymphocytes % 18.2 %; Mean Corpuscular HGB Conc 31.8 g/dL (30.0-36.0); Mean Corpuscular Hemoglobin 31.2 pg (28.0-34.0); Mean Corpuscular Volume 98.3 fl (81-99); Mean Platelet Volume 9.6 fL (7.4-10.4); Monocytes # 0.9 10^3/uL (0.2-0.9); Monocytes % 10.9 %; Neutrophils # 5.64 10^3/uL (1.8-7.7); Neutrophils % 66.2 %; Nucleated Red Blood Cells % 0 %; Platelet Count 373 10^3/cmm (130-400); Red Blood Count 3.46 10^6/uL (4.1-5.3); Red Cell Distribution Width 14.2 % (12.1-15.1); White Blood Count 8.5 10^3/uL (4.0-10.0)
[2022-05-17] MEDS: piperacillin-tazobactam 3.375 GM in sodium chloride 0.9% (plus) 50 ML IV ×3 (06:02→20:44)
[2022-05-17] MEDS: famotidine 20 mg/2 mL INJ IVP ×2 (06:44→17:10)
[2022-05-17 07:35] LABS: Blood Urea Nitrogen 12 mg/dL (8-23); Calcium 10.6 mg/dL (8.5-10.5); Carbon Dioxide 29 mmol/L (22-29); Chloride 101 mmol/L (98-107); Glucose 117 mg/dL (65-115); Magnesium 2.5 mg/dL (1.7-2.3); Osmolality Calculated 289 mOsm/kg (285-295); Phosphorus 3.2 mg/dL (2.5-4.5); Sodium 139 mmol/L (136-145)
[2022-05-17 07:40] LABS: Anion Gap 13.7 (5-19); Potassium 4.7 mmol/L (3.5-5.1)
[2022-05-17] MEDS: budesonide 0.5 mg/2 mL Neb INHALATION ×2 (08:44→21:21)
[2022-05-17] MEDS: heparin 5,000 unit/mL INJ 1 mL 5000 UNIT SUBCUT ×2 (08:49→22:37)
[2022-05-17] MEDS: citalopram 20 mg Tablet 10 MG PO (08:50)
[2022-05-17] MEDS: metoprolol succinate ER (24 HR) 25 mg Tablet PO (08:50)
[2022-05-17] MEDS: ferrous sulfate EC 325 mg Tablet PO ×2 (08:50→17:10)
--- NOTE | 2022-05-17 10:08 | PC.SOCIAL ---
Imm update Imm updated with patient's sister, Brooke. Copy of page 2 provided. Brooke verbalized understanding. Copy in chart initialed, dated and timed.
[2022-05-17] MEDS: FUROsemide 10 mg/mL SDV 4mL 40 MG IVP (11:04)
--- NOTE | 2022-05-17 12:09 | PM.PN ---
Subjective Subjective: Echo completed. Shows diastolic dysfunction. She did get Lasix 40 IV x1 yesterday. Did void quite a bit. Her output is not charted. Looks less puffy today. Oxygen is down to 3 L nasal cannula. Chest sounds a lot better today. Less secretions noted. skilled nursing staff member present states she is more awake during the day and she feels her mental status is almost back to her baseline skilled nursing staff is considering placing her on hospice and taking her home. Vitals/I&O/Wt Last Vital Signs Temp 98.7 F 05/17/22 08:00 Pulse 87 05/17/22 08:44 Resp 20 H 05/17/22 08:44 BP 138/73 05/17/22 08:00 Pulse Ox 99 05/17/22 08:44 O2 Del Method 05/17/22 08:44 O2 Flow Rate 4 05/17/22 08:44 FiO2 4 05/13/22 14:05 05/16/22 05/17/22 05/17/22 22:59 06:59 14:59 Intake Total 50 / 100 50 / 150 50 / 50 Output Total 2 / 2 1 / 3 Balance 48 / 98 49 / 147 50 / 50 Weight last 48 hrs Weight 44.934 kg Physical Exam Narrative: General: No acute distress, AAO x1, does open eyes. Has her mouth open and is on oxy mask HEENT: pupils bilaterally equal and reactive Chest:Bronchial breath sounds b/l , much clear to auscultation today throughout lung logan, diminished at bases. Conducted sounds present CVS: S1-S2 regular, no murmurs, no tachycardia, no gallops, no rubs Abdomen: Soft, nontender, no organomegaly, bowel sounds present, morbidly obese Neuro: Moves all 4 extremities. extremities; Trace to 1+ edema noted Data 05/17/22 04:26 05/17/22 07:04 A&P Assessment and plan (1) Acute encephalopathy: (2) Encounter for feeding tube placement: (3) Urinary tract infection due to ESBL Klebsiella: (4) Hypernatremia: (5) Dysphagia: (6) Zenker's diverticulum: (7) Hiatal hernia: (8) Aspiration pneumonia: Qualifiers: Aspiration pneumonia type: due to regurgitated food Laterality: bilateral (9) Cerebral palsy: (10) Acute UTI: Plan #Acute encephalopathy #Aspiration pneumonia #UTI #Hiatal hernia #Zenker's diverticulum #Dysphagia #Hyponatremia #Cerebral palsy #Recent COVID infection #Dementia #Pulmonary edema, #Diastolic heart failure ? Patient has worsening of baseline mentation in setting of cerebral palsy secondary to most likely acute illness. COVID, aspiration pneumonia along with hyponatremia and polypharmacy could be potential causes. Patient did go for an EGD was found to have a Zenker's diverticulum and found multiple pills stuck there. She has dysphagia. Strictly made n.p.o. and PEG tube placed. Continuous feeds being given through the PEG at this time. ? Patient is at high risk of aspiration with any consistency of diet secondary to hiatal hernia and Zenker's diverticulum. ? Urine culture appreciated. Klebsiella ESBL sensitive to Zosyn identified. Continue that for now. ? Continue tube feeding at 40 cc/h. Patient will need to continue tube feeds at long term versus detention. Disposition is pending at this time. ? Continue scopolamine patch - Will need to complete 7 days of zosyn for ESBL UTI - Zosyn will cover for aspiration pnuemonia as well -CXR reviewed. Pulm edema present. I would not repeat an x-ray today. -ECHO complete which was a poor study but shows possibly normal LV size ejection fraction. Segmental wall motion analysis difficult because of poor windows. Does have some features of grade 1 diastolic dysfunction. No other gross abnormalities noted. ? I will give her another Lasix 40 IV x1 today. -Hoping to wean down oxygen. She is down to 3 L today. ? Continue chest vest therapy. -Plan to send to long term with hospice eventually. They have not finalized but this is what they are discussing at this time. She will either go to long term or to a detention. Final disposition yet to be decided. DNR/DNI Continue aspiration precautions Sodium levels have normalized. Continue free water flushes to 50 cc every 4 hours. Stop IV fluids ? Continue donepezil and Celexa. Hold off on Seroquel. Heparin 5000 subcu twice daily for DVT prophylaxis. skilled nursing staff member updated today. She was at bedside. Attestations Medical Necessity Statement*: Continue to diurese slightly today. Eventually plan to send home with hospice or to detention. Diagnoses Acute encephalopathy G93.40 Encounter for feeding tube placement Z46.59 Urinary tract infection due to ESBL Klebsiella N39.0; B96.89 Hypernatremia E87.0 Dysphagia R13.10 Zenker's diverticulum K22.5 Hiatal hernia K44.9 Aspiration pneumonia J69.0 Aspiration pneumonia type: due to regurgitated food Laterality: bilateral Cerebral palsy G80.9 Acute UTI N39.0
[2022-05-17] MEDS: scopolamine 1.5 Patch 1 PATCH TRANSDERMA (12:33)
[2022-05-17] MEDS: donepezil 5 MG Tablet 10 MG PO (20:44)
[2022-05-17] MEDS: baclofen 10 mg Tablet 5 MG PO (20:44)
[2022-05-18] VITALS (9 sets, daily range): BP systolic 94–157; BP diastolic 54–73; PULSE 75–103; RESP 10–20; TEMP 36.8–37; O2SAT 93–98
[2022-05-18] MEDS: ipratropium-albuterol 3 mL Neb INHALATION ×2 (02:41→08:36)
[2022-05-18] MEDS: famotidine 20 mg/2 mL INJ IVP (05:11)
[2022-05-18] MEDS: piperacillin-tazobactam 3.375 GM in sodium chloride 0.9% (plus) 50 ML IV (05:14)
[2022-05-18] MEDS: ferrous sulfate EC 325 mg Tablet PO (08:04)
[2022-05-18] MEDS: citalopram 20 mg Tablet 10 MG PO (08:04)
[2022-05-18] MEDS: polyethylene glycol 3350 Pkt 17 gm 8.5 GM PO (08:05)
[2022-05-18] MEDS: budesonide 0.5 mg/2 mL Neb INHALATION (08:36)
[2022-05-18] MEDS: heparin 5,000 unit/mL INJ 1 mL 5000 UNIT SUBCUT (09:36)
[2022-05-18] MEDS: sodium chloride 0.9% 250 ML IV (11:14)
--- NOTE | 2022-05-18 11:24 | PM.DCS ---
Discharge Providers Date of Admission: 05/08/22 15:33 Date of Discharge: May 18, 2022 Attending Provider at Admission: Bunny Kuhn MD Attending Provider at Discharge: Sisi Stapleton MD Primary Care Provider: Abran Rosa MD Diagnoses at Discharge Discharge Diagnosis (1) Acute encephalopathy: Status: Resolved (2) Encounter for feeding tube placement: Status: Acute (3) Urinary tract infection due to ESBL Klebsiella: Status: Resolved (4) Hypernatremia: Status: Resolved (5) Dysphagia: Status: Acute (6) Zenker's diverticulum: Status: Acute (7) Hiatal hernia: Status: Acute (8) Aspiration pneumonia: Status: Suspected Qualifiers: Aspiration pneumonia type: due to regurgitated food Laterality: bilateral (9) Cerebral palsy: Status: Acute (10) Acute UTI: Status: Resolved Reason for Visit Reason for Visit: sob Brief History: As per Dr. Taylor History taken from chart review, discussion with ER physician, sister at bedside. Melany Horne is a 71 year old female who is a resident of a care home with past medical history of cerebral palsy, hypertension presents to the ER today because of difficulty breathing, fever.? As per the patient and the sister she has been having difficulty breathing, cough for last 3 to 4 days which has been getting worse.? Today she was found to be hypoxic on room air along with fever up to 101 and she was sent to the ER. As per my evaluation with the primary caregiver at the care home patient has been having cough ongoing for the last 1 year since her COVID-19 but gets worse whenever she eats the last couple of months.? We did try changing her consistency of diet as per speech therapy few months ago which seemed to help for short while but again started having difficulty in chewing and swallowing associated with cough with each meal within the last 1 month.? As per the caregiver last year after COVID patient was severely debilitated for around a month. In the ER patient was found to be hypoxic down to mid 80s requiring 2 L to maintain saturations over 90%.? At baseline patient is not on oxygen. On examination patient was seen on [facility] floor on 2 L oxygen supplementation saturating 96% with fever of 100.4 Fahrenheit. Hospital Course Hospital Course Patient has worsening of baseline mentation in setting of cerebral palsy secondary to most likely acute illness.? COVID, aspiration pneumonia along with hyponatremia and polypharmacy could be potential causes.? Patient did go for an EGD was found to have a Zenker's diverticulum and found multiple pills stuck there.? She has dysphagia.? Strictly made n.p.o. and PEG tube placed.? Continuous feeds being given through the PEG at this time. ? Patient is at high risk of aspiration with any consistency of diet secondary to hiatal hernia and Zenker's diverticulum. - Patient had klebseilla ESBL uti sensitive to zosyn. Completed 7 days of antibiotic during hospital stay. THat was discontinued at [place]. - CXR reviewed. Pulm edema present.? I would not repeat an x-ray today. -ECHO complete which was a poor study but shows possibly normal LV size ejection fraction.? Segmental wall motion analysis difficult because of poor windows.? Does have some features of grade 1 diastolic dysfunction.? No other gross abnormalities noted. She was diuresed with lasix 2 doses. - O2 down to 2L at discharge. - Mental status close to baseline as per care home staff. - They would like to take her home with hospice. Physical Exam Narrative: General: No acute distress, AAO x1, does open eyes. Has her mouth open and is on oxy mask 2L HEENT: pupils bilaterally equal and reactive Chest:Bronchial breath sounds b/l , much clear to auscultation today throughout lung logan, diminished at bases. Conducted sounds present CVS: S1-S2 regular, no murmurs, no tachycardia, no gallops, no rubs Abdomen: Soft, nontender, no organomegaly, bowel sounds present, morbidly obese Neuro: Moves all 4 extremities. extremities; Trace to 1+ edema noted Discharge Data Studies Completed and Pending Completed Studies During Hospitalization Category Date Time Status CT neck w con* [id number] Routine Cat Scan 05/10/22 Completed CTA chest [CT angio chest PE protcl [id number]] Stat Cat Scan 05/08/22 12:07 Completed FL barium swallow modifd [id number] Routine Exams 05/10/22 09:00 Completed XR chest 1V portable [id number] Routine Exams 05/09/22 15:01 Completed XR chest 1V portable [id number] Routine Exams 05/16/22 08:00 Completed XR chest 1V portable [id number] Stat Exams 05/08/22 10:43 Completed CV. echo complete* [id number] Routine Ultrasound 05/16/22 10:55 Completed Radiology Impressions Chest CTA 05/08/22 12:07 IMPRESSION: 1. Proximal main pulmonary arteries are normal. No evidence of pulmonary embolus. 2. Hazy bilateral perihilar infiltrates suspicious for pneumonitis. Recommend correlation for viral pneumonia including Covid 19 pneumonia. 3. Large esophageal hiatal hernia with partial intrathoracic stomach. Associated LEFT lower lobe atelectasis and small LEFT pleural effusion with volume loss. 4. Partially visualized air-filled diverticulum visualized in the lower neck eccentric to the RIGHT described above. This can be followed up with contrast-enhanced neck CT for better anatomic detail. Recommend correlation with dysphagia. Notified Shreyas Holley MD at 05/08/2022 3:[address] 05/10/22 00:00 IMPRESSION: 1. Large posteriorly projecting lower cervical esophageal diverticulum measuring 4.4 cm. This contains retained contrast material and presumably also food. Retained contrast is also seen in the thoracic esophagus which may reflect GERD. 2. Small left pleural effusion. Infiltrates in the afsa-loeevkk-klwq-right lungs, suspicious for pneumonia or aspiration given history. 3. Otherwise unremarkable aerodigestive tract. Modified Barium Swallow 05/10/22 09:00 IMPRESSION: Modified barium swallow as above. Chest X-Ray 05/16/22 08:00 IMPRESSION: Imaging findings of pulmonary edema with small left pleural effusion. Pneumonia should be excluded clinically. Laboratory Results WBC 8.5 10^3/uL (4.0-10.0) 05/17/22 04:26 RBC 3.46 10^6/uL (4.1-5.3) L 05/17/22 04:26 Hgb 10.8 g/dL (11.5-15.3) L 05/17/22 04:26 Hct 34.0 % (37.0-47.0) L 05/17/22 04:26 MCV 98.3 fl (81-99) 05/17/22 04:26 MCH 31.2 pg (28.0-34.0) 05/17/22 04:26 MCHC 31.8 g/dL (30.0-36.0) 05/17/22 04:26 RDW 14.2 % (12.1-15.1) 05/17/22 04:26 Plt Count 373 10^3/cmm (130-400) 05/17/22 04:26 MPV 9.6 fL (7.4-10.4) 05/17/22 04:26 Neut % (Auto) 66.2 % 05/17/22 04:26 Lymph % (Auto) 18.2 % 05/17/22 04:26 [place] % (Auto) 10.9 % 05/17/22 04:26 Eos % (Auto) 3.4 % 05/17/22 04:26 Baso % (Auto) 0.5 % 05/17/22 04:26 Neut # (Auto) 5.64 10^3/uL (1.8-7.7) 05/17/22 04: Lymph # (Auto) 1.6 10^3/uL (0.8-4.8) 05/17/22 04:26 [place] # (Auto) 0.9 10^3/uL (0.2-0.9) 05/17/22 04: Eos # (Auto) 0.3 10^3/uL (0.0-0.8) 05/17/22 04:26 Baso # (Auto) 0.0 10^3/uL (0.0-0.1) 05/17/22 04:26 Nucleated RBC % (auto) 0 % 05/17/22 04: Nucleated RBCs # 0.0 /100WBC 05/17/22 04:26 D-Dimer 3.25 ug/mIFEU (0-0.59) H 05/08/22 11:13 Sodium 139 mmol/L (136-145) 05/17/22 07:04 Potassium 4.7 mmol/L (3.5-5.1) 05/17/22 07:04 Chloride 101 mmol/L (98-107) 05/17/22 07:04 Carbon Dioxide 29 mmol/L (22-29) 05/17/22 07:04 Anion Gap 13.7 (5-19) 05/17/22 07:04 BUN 12 mg/dL (8-23) 05/17/22 07:04 Creatinine 0.6 mg/dL (0.5-0.9) 05/17/22 07:04 GFR Calculation Not Reportable 05/17/22 07:04 Glucose 117 mg/dL (65-115) H 05/17/22 07:04 POC Glucose 114 mg/dL (70-110) H 05/12/22 23:36 Estimat Average Glucose 88 05/09/22 05:53 Hemoglobin A1c 4.7 % (4.0-6.0) 05/09/22 05:53 Calculated Osmolality 289 mOsm/kg (285-295) 05/17/22 07:04 Lactic Acid 1.6 mmol/L (0.5-2.2) 05/08/22 11:13 Calcium 10.6 mg/dL (8.5-10.5) H 05/17/22 07:04 Phosphorus 3.2 mg/dL (2.5-4.5) 05/17/22 07:04 Magnesium 2.5 mg/dL (1.7-2.3) H 05/17/22 07:04 Iron 12 ug/dL (37-145) L 05/08/22 18:29 Iron Cancelled 05/08/22 18:29 TIBC 179 mcg/dl 05/08/22 18:29 TIBC Cancelled 05/08/22 18:29 % Saturation 6.7 % (20-50) L 05/08/22 18:29 % Saturation Cancelled 05/08/22 18:29 Unsat Iron Binding 167 ug/dL (112-347) 05/08/22 18:29 Unsat Iron Binding Cancelled 05/08/22 18:29 Total Bilirubin 0.2 mg/dL (0.15-1.2) 05/15/22 04:43 AST 14 U/L (0-32) 05/15/22 04:43 ALT 10 U/L (0-33) 05/15/22 04:43 Alkaline Phosphatase 77 U/L (35-105) 05/15/22 04:43 Troponin T Baseline 24 ng/L (0-10) H 05/08/22 11:13 Troponin T 120 Minute 21.48 ng/L (0-10) H 05/08/22 13:30 Delta Troponin T -2.52 ABS# (0-10) L 05/08/22 13:30 Troponin T Hi Sens 6Hr 19.83 ng/L (0-10) H 05/08/22 18:29 Troponin T Hi Sens 6Hr Delta -4.17 ng/L (0-12) L 05/08/22 18:29 C-Reactive Protein 96.3 mg/L (0.0-4.9) H 05/08/22 11:13 NT-Pro-B Natriuret Pep 359 pg/mL (0-125) H 05/08/22 11:13 Total Protein 6.0 g/dL (6.6-8.7) L 05/15/22 04:43 Albumin 3.0 g/dL (3.5-5.2) L 05/15/22 04:43 Globulin 3.0 g/dL (1.3-4.6) 05/15/22 04:43 Triglycerides 92 mg/dL (0-150) 05/09/22 05:53 Cholesterol 152 mg/dL (0-200) 05/09/22 05:53 LDL Cholesterol, Calc 73 mg/dL (50-129) 05/09/22 05:53 Total VLDL Cholesterol 18 mg/dL (0-30) 05/09/22 05:53 HDL Cholesterol 61 mg/dL (60-100) 05/09/22 05:53 Cholesterol/HDL Ratio 2.49 mg/dL (0.0-4.40) 05/09/22 05:53 Vitamin B12 492 pg/mL (232-1245) 05/08/22 18:29 Folate > 20.0 ng/mL (4.8-37.3) 05/08/22 18:29 Procalcitonin 0.19 ng/mL (0-0.5) 05/08/22 18:29 Procalcitonin Cancelled 05/08/22 18:29 TSH 0.92 uIU/mL (0.27-4.20) 05/08/22 18:29 Urine Color Yellow (Yellow) 05/08/22 13:20 Urine Appearance Sl hazy (CLEAR) A 05/08/22 13:20 Urine pH 5 (5-7) 05/08/22 13:20 Ur Specific [place] 1.025 (1.005-1.030) 05/08/22 13:20 Urine Protein Neg (Negative) 05/08/22 13:20 Urine Glucose (UA) Norm (Normal) 05/08/22 13:20 Urine Ketones 3+ (Negative) H 05/08/22 13:20 Urine Blood 2+ (Negative) H 05/08/22 13:20 Urine Nitrate Positive (Negative) H 05/08/22 13:20 Urine Bilirubin Neg (Negative) 05/08/22 13:20 Urine Urobilinogen Norm mg/dL (Negative) 05/08/22 13:20 Ur Leukocyte Esterase Negative (Negative) 05/08/22 13:20 Urine RBC 0-4 /hpf (0-2) H 05/08/22 13:20 Urine WBC 5-10 /hpf (0-5) H 05/08/22 13:20 Ur Squamous Epith Cells 0-4 /hpf (0-5) H 05/08/22 13:20 Amorphous Sediment Not Reportable 05/08/22 13:20 Urine Bacteria 3+ /hpf (NONE) H 05/08/22 13:20 Urine Mucus 1+ /hpf 05/08/22 13:20 Vancomycin Trough 13.6 ug/mL (10-15) 05/10/22 00:50 Coronavirus 229E (PCR) Detected (NOT DETECT) A 05/08/22 11:40 SARS-CoV-2 (PCR) Not detected (NOT DETECT) 05/08/22 11:40 Vitals Last Vital Signs Temp 98.2 F 05/18/22 08:00 Pulse 78 05/18/22 08:44 Resp 16 05/18/22 08:44 BP 94/57 05/18/22 08:00 Pulse Ox 98 05/18/22 08:44 O2 Del Method 05/18/22 08:44 O2 Flow Rate 2 05/18/22 08:44 FiO2 4 05/13/22 14:05 Discharge Plan Discharge Patient Disposition: Hospice - Home Condition: Stable Prescriptions: Continued acetaminophen [Tylenol] 325 mg tablet 650 mg PO QID PRN (Reason: Pain) donepezil [Aricept] 10 mg tablet 10 mg PO BEDTIME@21 baclofen 5 mg tablet 5 mg PO TID PRN (Reason: Muscle Spasm) ferrous sulfate 325 mg (65 mg iron) tablet 325 mg PO BID loperamide [Imodium A-D] 2 mg capsule 2 mg PO DAILY PRN (Reason: Diarrhea) citalopram 10 mg tablet 10 mg PO DAILY@09 DOK 100 mg Capsule 100 mg PO BID PRN (Reason: Constipation) metoprolol succinate 25 mg tablet extended release 24 hr 25 mg PO DAILY@09 Rx Instructions: hold if sbp is < 100 or if pulse is <55 and call rn Miralax 17 gram/dose Powder 8.5 g PO EVERY OTHER DAY loratadine 10 mg Tablet 10 mg PO DAILY PRN (Reason: Allergy Symptoms) cholecalciferol (vitamin D3) [Vitamin D3] 25 mcg (1,000 unit) Capsule 3,000 unit PO DAILY@07 SF 5000 Plus 1.1 % Cream See Rx Instructions .ROUTE .COMPLEX Rx Instructions: apply 1cm po daily for 2 min then expectorate do not rinse prevent tooth decay WesTab Plus 27 mg iron- 1 mg tablet 1 tab PO DAILY@09 baclofen 5 mg Tablet 5 mg PO BEDTIME@20 Flonase Allergy Relief 50 mcg/actuation spray,suspension 1 spray intranasal BID PRN (Reason: allergy symptoms) Rx Instructions: administer into each nostril Discontinued quetiapine 25 mg tablet 25 mg PO BEDTIME@20 acetaminophen [Tylenol] 325 mg Tablet 650 mg PO DAILY@09 Discharge Orders: Discharge Order (Routine); Ordered 05/18/22 Ordered By: Sisi Stapleton Other Ambulatory Orders: Basic Metabolic Panel (Routine) Timeframe: 1 Week Facility: [facility] - Location: Lab - Main Lab Ordered By: Sisi Stapleton Referrals: [facility] [Outside] Abran Rosa MD [Primary Care Provider] - 05/25/22 9:15 am (follow up CBC) Discharge Diet: Start new tube feeds as directed Discharge Activity: Increase activity as tolerated and Wheelchair as instructed Patient Instructions: GI Discharge Instructions Activity Restrictions/Additional Instructions: Will be going home with hospice. O2 @ 2l/min Continue Jevity 1.2 continuous feeds 40ml/hr with 50cc flush every 4 hours through peg tube. Change peg tube dressing daily with split gauze sponge and tape. Discharge Attestations Time Spent in Discharge Care*: less than 30 min Quality Metrics Clinical Quality Measures [ No reported AMI, CVA or VTE this stay] Coding Level of Care Code 40972 Diagnoses Acute encephalopathy G93.40 Encounter for feeding tube placement Z46.59 Urinary tract infection due to ESBL Klebsiella N39.0; B96.89 Hypernatremia E87.0 Dysphagia R13.10 Zenker's diverticulum K22.5 Hiatal hernia K44.9 Aspiration pneumonia J69.0 Aspiration pneumonia type: due to regurgitated food Laterality: bilateral Cerebral palsy G80.9 Acute UTI N39.0
== END 2022-05-18 15:55 | disposition hospice, home (50) | DRG 177 ==
LOC: ER 15:24 → MEDSURG 16:20
PROVIDERS: Family Medicine; Surgery; Admitting Provider Student in an Organized Health Care Education/Training Program; Emergency Provider Emergency Medicine; PCP Family Medicine; Visit Provider Internal Medicine
PROC: 0DH63UZ Insertion of Feeding Device into Stomach, Percutaneous Approach (ICD-10-PCS; CPT 43246; principal; 2022-05-11 11:00)
DX: J69.0 Pneumonitis due to inhalation of food and vomit (principal); I50.31 Acute diastolic (congestive) heart failure; E87.0 Hyperosmolality and hypernatremia; N39.0 Urinary tract infection, site not specified; E87.1 Hypo-osmolality and hyponatremia; B96.1 Klebsiella pneumoniae [K. pneumoniae] as the cause of diseases classified elsewhere; K22.5 Diverticulum of esophagus, acquired; K44.9 Diaphragmatic hernia without obstruction or gangrene; G80.9 Cerebral palsy, unspecified; Z86.16 Personal history of COVID-19; B34.2 Coronavirus infection, unspecified; F03.90 Unspecified dementia, unspecified severity, without behavioral disturbance, psychotic disturbance, mood disturbance, and anxiety; F32.A Depression, unspecified; E21.3 Hyperparathyroidism, unspecified; Z66 Do not resuscitate; R13.10 Dysphagia, unspecified; I11.0 Hypertensive heart disease with heart failure; E87.6 Hypokalemia
CPT/HCPCS: 36415; 36416; 43246; 70491; 71045; 71275; 74230; 80048; 80053; 80061; 80202; 81001; 82607; 82746; 82962; 83036; 83540; 83550; 83605; 83735; 83880; 84100; 84145; 84295; 84443; 84484; 85025; 85378; 86140; 86403; 87040; 87070; 87077; 87086; 87186; 87205; 87449; 87635; 87641; 92523; 92610; 92611; 93005; 93306; 94640; 94669; 96365; 96367; 96372; 96374; 96376; 99285; J0330; J0610; J1644; J1815; J1940; J2370; J2543; J2704; J3370; J3490; J7030; J7042; J7050; J7613; J7626; J7644; J7799; Q9967